=== PATIENT | male | born 1945 | race Caucasian/White ===

== ENCOUNTER 2016-12-24 13:37 | Observation (INO) ==
[2016-12-24] MEDS ORDERED: NITROGLYCERIN SL 0.4 MG TABLET SL PRN (14:05)
[2016-12-24] MEDS ORDERED: NITROGLYCERIN 2% OINT 1 INCH/GM PACK TOP STA (14:05)
[2016-12-24] MEDS ORDERED: ALUM/MAG/SIMETH/LIDO VISC 1:1 30 ML BOTTLE PO STA (14:05)
[2016-12-24] MEDS ORDERED: ASPIRIN 325 MG TABLET PO STA (14:05)
[2016-12-24] MEDS ORDERED: ENOXAPARIN 100 MG/ML SYRINGE SUBCUT STA (14:05)
--- NOTE | 2016-12-24 14:08 | EKG Report ---
Stationary ECG Study [facility] ER Test Date: 12/24/2016 1:49:28 PM Pat Name: GRISEL EARL Department: Room: 274 Gender: M Inside Trucker: Abbie Pérez : 1945 Requested by: Asad Roebrtson Order Number: [id number] Reading MD: FRIDA SPRINGER Intervals [place] Rate: 60 P: 999 AK: 150 QRS: -74 QRSD: 192 T: 87 QT: 535 QTc: 535 Interpretive Statements ELECTRONIC ATRIAL PACEMAKER ELECTRONIC VENTRICULAR PACEMAKER NO FURTHER INTERPRETATION POSSIBLE ATYPICAL ECG Electronically Signed On 12-25-16 17:22:14 SUSTAINABLE AGRICULTURE SPECIALIST by FRIDA SPRINGER [email or web address]
--- NOTE | 2016-12-24 14:19 | Emergency Department Note ---
Enoch Boraj Meredith, am scribing for, and in the presence of, Asad Giraldo MD 14: 17. Kristal Borja James D, MD, personally performed the services described in this documentation, ascribed by Deanne Kendall in my presence, and it is both accurate and complete 419 . Arrival - Arrival Chief Complaint: Chest Pain Stated Complaint: sent by Dr Gomez ED Nursing Triage Note: Pt c/o CP with some SOB x 2 days. Pt was seen by Dr Kelly yesterday he called Dr Gomez and instr. to come into the ER. Mode of Arrival: Ambulatory Limitations: No Limitations Source: Patient, Old Records Reviewed, RN Notes Reviewed Time Seen by Provider: 12/24/16 14:05 - History of Present Illness HPI Narrative: Pt is a 71 y/o white male reporting to the ED with c/o intermittent, sharp chest pain for the past 2 weeks. He confirms some bright red blood in his stool 2 days ago which no resolved but denies any shortness of breath or diaphoresis. Pt saw Dr. Kelly yesterday who called Dr. Gomez. Dr. Gomez called back this morning and instructed the pt to come to the ED. Pt has a history of pacemaker, HTN, and NIDDM. Onset (ago): week(s) Consistency: intermittent Quality: sharp Allergies/Adverse Reactions: Allergies Allergy/AdvReac Type Severity Reaction Status Date / Time No Known Allergies Allergy Verified 12/24/16 13:45 Home Medications: Home Medications Medication Instructions Recorded Confirmed Type Amiodarone HCl 200 mg PO BID 12/24/16 12/24/16 History Amlodipine Besylate 5 mg PO DAILY 12/24/16 12/24/16 History Aspirin EC Tab 81 mg PO DAILY 12/24/16 12/24/16 History Atenolol [Tenormin] 25 mg PO BID 12/24/16 12/24/16 History Hyoscyamine Sulfate 0.125 mg PO Q4H PRN 12/24/16 12/24/16 History Metformin HCl 1,000 mg PO BID W/MEALS 12/24/16 12/24/16 History Omeprazole 20 mg PO DAILY 12/24/16 12/24/16 History Pravastatin [Pravachol] 40 mg PO DAILY 12/24/16 12/24/16 History Valsartan/Hydrochlorothiazide 1 each PO DAILY 12/24/16 12/24/16 History [Valsartan-Hctz 320-25 mg Tab] glipiZIDE [Glipizide] 5 mg PO BIDAC 12/24/16 12/24/16 History Review of System - Review of System 12 point system: reviewed and no additional remarkable complaints except as stated - Review of System Constitutional: Present: as per HPI. Absent: diaphoresis Respiratory: Present: as per HPI. Absent: respiratory distress Cardiovascular: Present: as per HPI, chest pain Gastrointestinal: Present: as per HPI, other (bright red blood in the stool ) Medical,Surgical,& Family Hx - Medical History Cardio: History of: Hypertension, Pacemaker Endocrine: History of: Diabetes Mellitus (NIDDM) - Surgical History Thoracic Surgeries: Surgical HX of;: Nephrectomy - Family History Family History: Denies;: Additional Family History - Social History Smoking Status: Never smoker Exam Physical Examination: GENERAL: This is a well-nourished, well-developed white male in no apparent distress. VITAL SIGNS: Temperature: 98.0, Pulse: 62, Respirations: 18, Blood pressure: 163 /76, O2 saturatino: 96 HEENT: Head is normocephalic and atraumatic. Pupils are equally round and reactive to light. Extraocular movement are intact. Oropharynx is benign with moist mucous membranes. NECK: Neck is soft and supple without tenderness. There are no masses. There is no lymphadenopathy. LUNGS: Lungs are clear to auscultation bilaterally. Chest rises symmetrically. There is no chest wall tenderness. CV: Heart is regular rate and rhythm without murmurs, rubs, or gallops. ABDOMEN: Abdomen is soft, non-tender to palpation. There are no abnormal masses palpated. There is no organomegaly. Bowel sounds are present and active. SKIN: Skin is warm and dry. No rash. EXTREMITIES: Patient has full range of motion without tenderness. There is no pedal edema. NEUROLOGIC: Awake, alert, and oriented x3. Cranial nerves II through XII are grossly intact. There are no decreased motor function in the right. PSYCHIATRIC: Normal mood. Normal affect. Vital Signs: Vital Signs Temperature 98.0 F 12/24/16 13:45 Pulse Rate 62 12/24/16 13:45 Respiratory Rate 18 12/24/16 13:45 Blood Pressure 163/76 12/24/16 13:45 O2 Sat by Pulse Oximetry 96 12/24/16 13:45 Course - Consultations Consultation #1: Discussed with assembler musical instruments. Patient will be admitted to their service. Time: 15:27 Results - Labs CBC & BMP: 12/24/16 14:25 12/24/16 14:25 Lab Results: I have reviewed the patients labs Labs: Laboratory Tests 12/24/16 14:25 WBC 8.6 RBC 4.30 Hgb 14.2 Hct 41.8 L Plt Count 194 Lymph % (Auto) 20.0 L Laboratory Tests 12/24/16 14:25 INR 1.0 PT Patient/Control Mix 10.7 Circ Anticoag PTT 28.0 Laboratory Tests 12/24/16 12/24/16 14:25 14:25 Sodium 146 H Potassium 4.2 Chloride 107 Carbon Dioxide 28 Anion Gap 15.2 H BUN 17 Creatinine 1.20 AST 81 H ALT 83 H Alkaline Phosphatase 131 H Troponin I < 0.015 Globulin 4.1 H Albumin/Globulin Ratio 0.8 L Laboratory Tests 12/24/16 14:25 Troponin I < 0.015 - EKG EKG results: interpreted by ERMD - Impressions Electronic ventricular pacemaker with a rate of 60. No further interpretation possible. - Diagnostic Findings Procedure: Chest x-ray: image reviewed by me (No cardiomegaly, no pleural effusions, no infiltrates. Pacemaker in place on the right with leads in place. ) Disposition Clinical Impression: Chest pain, Hematochezia Case discussed with: patient Disposition: Still a Patient Condition: Stable Time of Disposition: 15:35
--- NOTE | 2016-12-24 14:23 | XRay Report ---
XR chest 1V portable Indication: Chest pain Comparison: Chest x-ray August 13, 2014 Technique: Portable AP chest was performed. Findings: The heart size appears within normal limits of size. Right-sided cardiac pacemaker generator and pacemaker leads are stable. The mediastinal contour and hilar structures demonstrate no significant abnormalities. Lungs are clear. Bones and soft tissues demonstrate no evidence of acute pathology. Impression: 1. No evidence of acute pathology. 12/24/2016 2:19 PM PROCEDURE INTERPRETED AT [facility] DEPARTMENT OF RADIOLOGY Final Report Signed by: Dr. Francisco Whelan
[2016-12-24 14:41] LABS: Basophils # 0.1 10*3/uL (0.0-0.2); Basophils % 0.6 % (0.0-0.8); Eosinophils # 0.6 10*3/uL (0.0-0.87); Eosinophils % 6.4 % (0.00-10.9); Hematocrit 41.8 VOL% (42.0-52.0); Hemoglobin 14.2 GM/DL (14.0-18.0); Immature Granulocytes % 0.3 %; Immature Granulocytes Absolute 0.03 #; Lymphocytes # 1.7 10*3/uL (1.4-4.0); Mean Corpuscular Hemoglobin 33 PG (27-34); Mean Corpuscular Volume 97.2 FL (87-102); Mean Platelet Volume 10.9 FL (9.6-12.0); Monocytes # 0.7 10*3/uL (0.11-0.8); Monocytes % 8.6 % (1.7-12.7); Neutrophils # 5.5 10*3/uL (1.4-7.4); Neutrophils % 64.1 % (38.7-73.9); Platelet Count 194 T/CUMM (130-400); Red Cell Distribution Width 14.4 % (9.3-17.3); White Blood Count 8.6 T/CUMM (4-12)
[2016-12-24] MEDS ORDERED: ALUM/MAG/SIMETH/LIDO VISC 1:1 30 ML BOTTLE PO ONE (14:44)
[2016-12-24] MEDS ORDERED: NITROGLYCERIN 2% OINT 1 INCH/GM PACK TOP ONE (14:44)
[2016-12-24] MEDS ORDERED: ASPIRIN 325 MG TABLET ONE (14:44)
[2016-12-24] MEDS ORDERED: ENOXAPARIN 80 MG/0.8 ML SYRINGE SUBCUT ONE (14:44)
[2016-12-24 14:51] LABS: PT Patient Result 10.7 SECS
[2016-12-24] MEDS ORDERED: PANTOPRAZOLE 40 MG VIAL IV STA (15:10)
[2016-12-24] MEDS ORDERED: PANTOPRAZOLE 40 MG VIAL IV ONE (15:17)
[2016-12-24 15:19] LABS: Albumin 3.6 G/DL (3.4-5.0); Bilirubin,Total 0.5 MG/DL (0.2-1.0); Calcium 8.9 MG/DL (8.5-10.1); Osmolality,Calculated 290.6 MOS/KG (273-304); Potassium 4.2 MMOL/L (3.5-5.1); Total Protein 7.7 G/DL (6.4-8.3)
[2016-12-24] MEDS ORDERED: DEXTROSE 50% 25 GM/50 ML VIAL IV ONE ×2 (17:06→17:15)
[2016-12-24] MEDS ORDERED: MAGNESIUM SULF RIDER 2 GM in PREMIX 1 EACH IV PRN (17:55)
[2016-12-24] MEDS ORDERED: MAGNESIUM SULF RIDER 4 GM in PREMIX 1 EACH IV PRN (17:55)
[2016-12-24] MEDS: SODIUM CHLORIDE 0.9% 1,000 ML IV SCH (19:34)
[2016-12-25] MEDS: SODIUM CHLORIDE 0.9% 1,000 ML IV SCH ×3 (03:35→18:35)
--- NOTE | 2016-12-25 13:47 | Cardiology History & Physical ---
Assessment and Plan (1) Hematochezia Status: Acute Assessment and plan: I'm going to consult gastroenterology for further evaluation. Current Visit: Yes (2) Pacemaker Status: Acute Current Visit: Yes (3) Hypertension Status: Acute Current Visit: Yes (4) Diabetes Status: Acute Current Visit: Yes (5) Paroxysmal atrial fibrillation Status: Acute Current Visit: Yes History of Present Illness History of present illness: Mr. Leung is a 71 year old male who is normally followed by Dr. Gomez. He has a history of paroxysmal atrial fibrillation, hypertension, diabetes, and a pacemaker. The patient reports that he noticed bright red blood in his stool for a couple of days. He contacted his primary physician who contacted Dr. Gomez, negative both recommended that he come into the hospital for further evaluation and management. Patient reports that it is a small to moderate amount of blood in his stool. It is bright red. There is no specific exacerbating or relieving factors. He had more this last night as well. He denies any previous history of gastrointestinal problems or bleeding. There were reports of some intermittent chest pain, but he did not give that history to me. He does complain of some abdominal discomfort at times, although his abdominal exam was benign. He denies any fever, chills, or cough. He has no orthopnea, PND, or peripheral edema. He has not had any palpitations or syncope. At the time of seeing him he was essentially feeling normal. He is only on aspirin for anticoagulation at this time. Home Medications Medication Instructions Recorded Confirmed Type Amiodarone HCl 200 mg PO BID 12/24/16 12/24/16 History Amlodipine Besylate 5 mg PO DAILY 12/24/16 12/24/16 History Aspirin EC Tab 81 mg PO DAILY 12/24/16 12/24/16 History Atenolol [Tenormin] 25 mg PO BID 12/24/16 12/24/16 History Hyoscyamine Sulfate 0.125 mg PO Q4H PRN 12/24/16 12/24/16 History Metformin HCl 1,000 mg PO BID W/MEALS 12/24/16 12/24/16 History Omeprazole 20 mg PO DAILY 12/24/16 12/24/16 History Pravastatin [Pravachol] 40 mg PO DAILY 12/24/16 12/24/16 History Valsartan/Hydrochlorothiazide 1 each PO DAILY 12/24/16 12/24/16 History [Valsartan-Hctz 320-25 mg Tab] glipiZIDE [Glipizide] 5 mg PO BIDAC 12/24/16 12/24/16 History Allergies Allergy/AdvReac Type Severity Reaction Status Date / Time No Known Allergies Allergy Verified 12/24/16 13:45 12 point system: reviewed and no additional remarkable complaints except as stated Medical,Surgical,& Family Hx - Medical History Cardio: History of: Cardiac Dysrhythmia, Hypertension, Pacemaker HEENT: History of: Ear Problem (Bilaterally ear aid) Endocrine: History of: Diabetes Mellitus (NIDDM), Dyslipidemia Gastrointestinal: History of: GERD - Surgical History Thoracic Surgeries: Surgical HX of;: Kidney (Renal Surgery) (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), Nephrectomy Abdominal Surgeries: Patient denies: Appendectomy - Family History Family History: Reports;: Family Cancer (Mother(kidney)) Denies;: Additional Family History - Social History Smoking Status: Never smoker Frequency of Alcohol Use: None Type of Drug Use: None Cardiology Physical Exam - Constitutional Vitals: Vital Signs Temp Pulse Resp BP Pulse Ox 98.1 F 60 18 141/70 90 L 12/25/16 12:00 12/25/16 12:00 12/25/16 12:00 12/25/16 12:00 12/25/16 12:00 Intake and Output 12/24/16 12/25/16 12/25/16 23:59 07:59 15:59 Intake Total 300 / 300 1480 / 1480 1000 / 1000 Output Total 220 / 220 1710 / 1710 Balance 80 / 80 -230 / -230 1000 / 1000 Intake: IV 1000 / 1000 1000 / 1000 Ns 1,000 ml @ 125 mls/hr 1000 / 1000 1000 / 1000 IV .Q8H ABISAI Rx#: [id number] Oral 300 / 300 480 / 480 Output: Urine 220 / 220 1710 / 1710 Other: Voiding Method Urinal Indwelling Catheter # Bowel Movements 1 Weight 54.544 kg 65.825 kg Patient Weight 12/25/16 23:59 Weight 65.825 kg Exam: General: Appears well developed, well nourished, no apparent distress HEENT: Normocephalic, atraumatic Neck: Supple Neck, Midline Trachea, No Bruit, No JVD Cardiac: Reg Rate and Rhythm, No Murmur, no gallop, no rub Lungs: Clear to auscultation, No Wheeze, Rales, Rhonchi Neuro: Cranial Nerve 2-12 Intact, Motor Function Grossly Intact Abdomen: Soft, Active Bowel Sounds, No Masses, No Pulsations/Bruits Skin: Normal color, no rash Extremities: No Clubbing, No Cyanosis, No Edema, Normal Upper Extr. Pulses Musculoskeletal: No acute abnormality noted Psychiatric: The patient does not appear to be anxious or depressed Result/EKG - Labs CBC & BMP: 12/24/16 14:25 12/24/16 14:25 Lab Results: I have reviewed the past 24 hour labs Labs: Laboratory Results - last 24 hr 12/24/16 12/24/16 12/24/16 17:03 18:30 20:08 POC Glucose 51 L 217 H Troponin I < 0.015 12/24/16 12/25/16 12/25/16 20:38 07:37 11:27 POC Glucose 117 H 177 H Troponin I < 0.015 - EKG EKG results: interpreted by me
[2016-12-25] MEDS ORDERED: HYOSCYAMINE 0.125 MG TABLET PO PRN (13:48)
[2016-12-25 14:35] LABS: Hematocrit 37.7 VOL% (42.0-52.0); Hemoglobin 12.7 GM/DL (14.0-18.0)
--- NOTE | 2016-12-25 15:25 | Gastrointestinal Consult Note ---
Assessment and Plan (1) Hematochezia Status: Acute Assessment and plan: The patient has a previous colonoscopy done 2 and a half years ago but not done for bleeding-- this demonstrated some diverticulosis and certainly this could be a diverticular bleed versus hemorrhoidal bleed versus ischemic colitis or even an infectious colitis. Patient denies any sick contacts or unusual foods. He is having abdominal pain and we will go ahead and check his stools for stool pathogens. We will likely start by putting him on clear liquids tomorrow , stopping his aspirin and getting him bowel prepped for the next day 12/27/16 for colonoscopy. Risks and benefits of the procedure were discussed with the patient and include but are not limited to: Bleeding, infection, perforation, cardiac and pulmonary compromise. If this is nonischemic bleed or diverticular bleed or hemorrhoidal bleed most likely. Current Visit: Yes (2) Posthemorrhagic anemia Status: Acute Assessment and plan: We will continue to watch his hematocrit was suspect he is not going to lose much blood. He is drifted down from 41% down to 37% we will continue to monitor. Current Visit: Yes (3) Gastritis Status: Acute Assessment and plan: Patient does have a history of nodular gastritis, the stools do not seem dark although brisk upper GI bleed could certainly present with bright red blood per rectum his hematocrit does not seem to support this. We will continue to observe. I do suggest we start her on some Protonix prior to supper. Current Visit: Yes (4) Diverticulosis Status: Acute Assessment and plan: Incidental finding-- no specific treatment needed. Current Visit: Yes History of Present Illness Chief complaint: bright red blood per rectum, minimal drop in hematocrit and gen. ab. pain History of present illness: Mr. Leung is a 71 year old male who has a history of onset of rectal bleeding the last 24 hours with multiple stools that have been bright red, [place] got a history of this is been going on for the last several days, his hematocrit was actually normal on admission at 41.8. The patient initially presented with Dr. Kelly who called Dr. Gomez and was instructed to bring him to a [facility] for evaluation. He is having diffuse abdominal pain, this seems to be worse in the left upper quadrant, the patient's hematocrit over the evening time has dropped down to 37.7, is demonstrated bright red blood per rectum to the nursing staff but only in the form of a scant amount of bright red on the toilet paper. This patient previously been evaluated by Dr. Pepe as recently as 08/14/14 for abdominal pain. He had an upper endoscopy done that date which demonstrated a focal nodular gastritis erosion, he had a subsequent colonoscopy on 08/15/14 which demonstrated left-sided diverticulosis but no hemorrhoids or other lesions certainly no polyps or AVMs or cancer. The patient has felt slightly weak not dizzy. 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 He does not have any nausea or vomiting the pain waxes and wanes and is crampy and only minimal 5 out of 10 in intensity. The patient has atrial fibrillation and a pacemaker that is only on aspirin as his single anticoagulant. Home Medications Medication Instructions Recorded Confirmed Type Amiodarone HCl 200 mg PO BID 12/24/16 12/24/16 History Amlodipine Besylate 5 mg PO DAILY 12/24/16 12/24/16 History Aspirin EC Tab 81 mg PO DAILY 12/24/16 12/24/16 History Atenolol [Tenormin] 25 mg PO BID 12/24/16 12/24/16 History Hyoscyamine Sulfate 0.125 mg PO Q4H PRN 12/24/16 12/24/16 History Metformin HCl 1,000 mg PO BID W/MEALS 12/24/16 12/24/16 History Omeprazole 20 mg PO DAILY 12/24/16 12/24/16 History Pravastatin [Pravachol] 40 mg PO DAILY 12/24/16 12/24/16 History Valsartan/Hydrochlorothiazide 1 each PO DAILY 12/24/16 12/24/16 History [Valsartan-Hctz 320-25 mg Tab] glipiZIDE [Glipizide] 5 mg PO BIDAC 12/24/16 12/24/16 History Allergies Allergy/AdvReac Type Severity Reaction Status Date / Time No Known Allergies Allergy Verified 12/24/16 13:45 Medical,Surgical,& Family Hx - Medical History Cardio: History of: Cardiac Dysrhythmia, Hypertension, Pacemaker HEENT: History of: Ear Problem (Bilaterally ear aid) Endocrine: History of: Diabetes Mellitus (NIDDM), Dyslipidemia Gastrointestinal: History of: GERD - Surgical History Thoracic Surgeries: Surgical HX of;: Kidney (Renal Surgery) (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), Nephrectomy Abdominal Surgeries: Patient denies: Appendectomy - Family History Family History: Reports;: Family Cancer (Mother(kidney)) Denies;: Additional Family History - Social History Smoking Status: Never smoker Frequency of Alcohol Use: None Type of Drug Use: None Review of systems: Constitutional: Denies fever, chills, nausea, and vomiting Eyes: Denies dry eyes, and scleral icterus HENT: Denies headaches Cardiovascular: Denies acute chest pain and claudication Respiratory: Denies shortness of breath, wheezing, and difficulty breathing, denies cough Gastrointestinal: As noted in the HPI Genitourinary: Denies dysuria and hematuria Neurologic: Denies vision loss, and loss of sensation Musculoskeletal: He does complain of some mild joint swelling, joint stiffness, and muscular weakness Psychiatric: Denies depression and shane symptoms Heme-Lymph: Denies easy bruising, lymph node enlargement or tenderness, night sweats, excessive bleeding Allergies-immunologic: Denies pruritus and rhinorrhea Exam - Constitutional Vitals: Period Temp Pulse Resp BP Sys/Leavitt Pulse Ox Last 24 Hr 95.2 F-99 F 60-62 14-22 133-163/67-78 90-97 General appearance: no acute distress Exam: Constitutional: Well-developed, well-nourished, alert, and in very mild distress due to abdominal tenderness. Head and face: Head: Normocephalic atraumatic Eyes: Conjunctiva without injection, no gross scleral icterus, pupils equal and round bilaterally Ears: Intact to conversation in both ears Nose: External appearance is normal, nares patent Mouth: Oral mucous membranes moist without erythema dentition noted to be without erosion Neck: Normal appearance, no masses or tenderness, trachea midline Thyroid: Gland midline and appropriate size for age Respiratory: Normal respiratory effort, clear to auscultation without wheezes, rhonchi or rales Cardiovascular: Regular rate and rhythm, normal S1, S2, the exam is without rubs, murmurs or gallops. Gastrointestinal: Mildly tender to palpation in left upper and lateral abdomen greater than left lower abdomen greater than right upper abdomen. There is no tenderness in the right lower abdomen., normal active bowel sounds, tone normal without rigidity or guarding, no masses present, no hepatomegaly, no spleen tip felt. Rectal exam significant for traces of bright red blood per rectum Lymphatic: Neck without adenopathy, axilla without lymphadenopathy present Musculoskeletal: Right and left lower extremities without evidence of edema Skin and subcutaneous tissue: No rashes or ulcerations noted, normal skin turgor, digits and nails without clubbing/cyanosis/deformities. Neurologic: The patient is grossly oriented to person place and time, cranial nerves show tongue movements are normal with normal tongue extrusion midline, light touch sensation is intact. It appears to be some atrophy of patient's hand muscles bilaterally Psychiatric: No hallucinations or delusions are present, does not appear depressed Results - Labs CBC & BMP: 12/25/16 14:15 12/24/16 14:25
[2016-12-25] MEDS: glipiZIDE 5 MG TABLET PO SCH (17:03)
[2016-12-25] MEDS: metFORMIN 500 MG TABLET PO SCH (17:03)
[2016-12-25] MEDS: ATENOLOL 25 MG TABLET PO SCH (20:34)
[2016-12-25] MEDS: AMIODARONE 200 MG TABLET PO SCH (20:34)
[2016-12-26] MEDS: SODIUM CHLORIDE 0.9% 1,000 ML IV SCH ×4 (02:29→22:43)
[2016-12-26 03:15] LABS: Basophils % 0.5 % (0.0-0.8); Eosinophils # 0.4 10*3/uL (0.0-0.87); Eosinophils % 5.5 % (0.00-10.9); Hematocrit 37.1 VOL% (42.0-52.0); Hemoglobin 12.7 GM/DL (14.0-18.0); Immature Granulocytes % 0.4 %; Immature Granulocytes Absolute 0.03 #; Lymphocytes # 1.2 10*3/uL (1.4-4.0); Lymphocytes % 16.2 % (21.2-54.2); Mean Corpuscular HGB Conc 34.2 GM/DL (32-36); Mean Corpuscular Hemoglobin 33 PG (27-34); Mean Corpuscular Volume 96.4 FL (87-102); Monocytes # 0.7 10*3/uL (0.11-0.8); Neutrophils # 5.1 10*3/uL (1.4-7.4); Neutrophils % 68.4 % (38.7-73.9); Platelet Count 163 T/CUMM (130-400); Red Blood Count 3.85 MC/CUMM (3.8-5.5); Red Cell Distribution Width 14.3 % (9.3-17.3); White Blood Count 7.5 T/CUMM (4-12)
[2016-12-26] MEDS ORDERED: MAGNESIUM CITRATE 300 ML BOTTLE PO ONE ×2 (07:00→23:06)
[2016-12-26] MEDS: metFORMIN 500 MG TABLET PO SCH ×3 (08:39→16:02)
[2016-12-26] MEDS: glipiZIDE 5 MG TABLET PO SCH ×2 (08:54→16:02)
[2016-12-26] MEDS: PRAVASTATIN 40 MG TABLET PO SCH (08:54)
[2016-12-26] MEDS: amLODIPine 5 MG TABLET PO SCH (08:54)
[2016-12-26] MEDS: ATENOLOL 25 MG TABLET PO SCH ×2 (08:54→21:25)
[2016-12-26] MEDS: AMIODARONE 200 MG TABLET PO SCH ×2 (08:54→21:25)
[2016-12-26] MEDS: VALSARTAN/HCTZ 160-12.5 MG TABLET PO SCH (08:55)
[2016-12-26] MEDS: PANTOPRAZOLE 40 MG TABLET PO SCH (08:55)
[2016-12-26] MEDS ORDERED: ASPIRIN EC 81 MG TABLET PO SCH (09:00)
[2016-12-26] MEDS ORDERED: PANTOPRAZOLE 40 MG TABLET PO SCH (09:00)
--- NOTE | 2016-12-26 11:56 | Cardiology Progress Note ---
Assessment and Plan (1) Hematochezia Status: Acute Assessment and plan: GI eval underway Current Visit: Yes (2) Pacemaker Status: Acute Current Visit: Yes (3) Hypertension Status: Acute Current Visit: Yes (4) Diabetes Status: Acute Current Visit: Yes (5) Paroxysmal atrial fibrillation Status: Acute Current Visit: Yes Cardiology - PN: Subj Interval history: The patient still have some abdominal distention/discomfort. He denies additional blood loss in his stool overnight. He denies any cardiac symptoms today such as angina, palpitations, or dyspnea. He is scheduled for endoscopy tomorrow. Current Medications Amiodarone HCl (Cordarone Tab) 200 mg PO BID [facility] Last Admin: 12/26/16 08:54 Dose: 200 mg Amlodipine Besylate (Norvasc) 5 mg PO DAILY [facility] Last Admin: 12/26/16 08:54 Dose: 5 mg Aspirin () 81 mg PO DAILY [facility] Last Admin: 12/26/16 08:55 Dose: 81 mg Atenolol (Tenormin) 25 mg PO BID [facility] Last Admin: 12/26/16 08:54 Dose: 25 mg Glipizide (Glucotrol) 5 mg PO BIDAC [facility] Last Admin: 12/26/16 08:54 Dose: 5 mg HCTZ/Valsartan (Diovan Hct 160-12.5) 2 tablet PO DAILY [facility] Last Admin: 12/26/16 08:55 Dose: 2 tablet Hyoscyamine (Levsin Tab) 0.125 mg PO Q4H PRN PRN Reason: Dry Mouth Magnesium Sulfate 2 gm/ Premix 50 mls @ 25 mls/hr IV .PER PROTOCOL PRN; Protocol PRN Reason: Per Protocol Magnesium Sulfate 4 gm/ Premix 100 mls @ 25 mls/hr IV .PER PROTOCOL PRN; Protocol PRN Reason: Per Protocol Sodium Chloride (Ns) 1,000 mls @ 125 mls/hr IV .Q8H [facility] Last Admin: 12/26/16 11:15 Dose: 125 mls/hr Metformin HCl (Glucophage) 1,000 mg PO BID W/MEALS [facility] Last Admin: 12/26/16 08:53 Dose: 1,000 mg Nitroglycerin (Nitrostat) 0.4 mg SL Q5M PRN PRN Reason: Chest Pain Pantoprazole Sodium (Protonix Tab) 40 mg PO DAILY [facility] Last Admin: 12/26/16 08:55 Dose: 40 mg Pravastatin Sodium (Pravachol) 40 mg PO DAILY ABISAI Last Admin: 12/26/16 08:54 Dose: 40 mg Exam (Progress Note) - Constitutional Vitals: Period Temp Pulse Resp BP Sys/Leavitt Pulse Ox Last 24 Hr 96.6 F-98.5 F 59-60 16-18 141-160/63-77 90-96 Exam: General: Appears well developed, well nourished, no apparent distress HEENT: Normocephalic, atraumatic Neck: Supple Neck, Midline Trachea, No Bruit, No JVD Cardiac: Reg Rate and Rhythm, 2/6 Murmur, no gallop, no rub Lungs: Clear to auscultation, No Wheeze, Rales, Rhonchi Neuro: Cranial Nerve 2-12 Intact, Motor Function Grossly Intact Abdomen: Soft, Active Bowel Sounds, No Masses, No Pulsations/Bruits Skin: Normal color, no rash Extremities: No Clubbing, No Cyanosis, No Edema, Normal Upper Extr. Pulses Musculoskeletal: No acute abnormality noted Psychiatric: The patient does not appear to be anxious or depressed Result/EKG - Labs CBC & BMP: 12/26/16 01:49 12/24/16 14:25 Lab Results: I have reviewed the past 24 hour labs Labs: Laboratory Results - last 24 hr 12/25/16 12/25/16 12/26/16 14:15 20:33 01:49 WBC 7.5 RBC 3.85 Hgb 12.7 L 12.7 L Hct 37.7 L 37.1 L MCV 96.4 MCH 33 MCHC 34.2 RDW 14.3 Plt Count 163 MPV 12.0 Neut % (Auto) 68.4 Lymph % (Auto) 16.2 L [place] % (Auto) 9.0 Eos % (Auto) 5.5 Baso % (Auto) 0.5 Neut # (Auto) 5.1 Lymph # (Auto) 1.2 L [place] # (Auto) 0.7 Eos # (Auto) 0.4 Baso # (Auto) 0.0 Immature Gran % 0.4 Nucleated RBC % 0.0 Immature Gran # 0.03 Nucleated RBCs # 0.00 POC Glucose 161 H 12/26/16 12/26/16 07:33 08:53 WBC RBC Hgb Hct MCV MCH MCHC RDW Plt Count MPV Neut % (Auto) Lymph % (Auto) [place] % (Auto) Eos % (Auto) Baso % (Auto) Neut # (Auto) Lymph # (Auto) [place] # (Auto) Eos # (Auto) Baso # (Auto) Immature Gran % Nucleated RBC % Immature Gran # Nucleated RBCs # POC Glucose 77 176 H - EKG EKG results: interpreted by me
--- NOTE | 2016-12-26 15:12 | Gastrointestinal Progress Note ---
Assessment and Plan (1) Hematochezia Status: Acute Assessment and plan: The patient has a previous colonoscopy done 2 and a half years ago but not done for bleeding-- this demonstrated some diverticulosis and certainly this could be a diverticular bleed versus hemorrhoidal bleed versus ischemic colitis or even an infectious colitis. Patient denies any sick contacts or unusual foods. He is having abdominal pain and we will go ahead and check his stools for stool pathogens. We will likely start by putting him on clear liquids tomorrow , stopping his aspirin and getting him bowel prepped for the next day 12/27/16 for colonoscopy. Risks and benefits of the procedure were discussed with the patient and include but are not limited to: Bleeding, infection, perforation, cardiac and pulmonary compromise. If this is nonischemic bleed or diverticular bleed or hemorrhoidal bleed most likely. 12/26/16--the patient is doing adequately at this time, no new complaints, he is still having a small amount of bright red blood coming out of his rectum but I suspect this will pass with his bowel prep tonight. He is on the schedule for a colonoscopy tomorrow, he would like his brother to be there if possible to hear the results. Current Visit: Yes (2) Posthemorrhagic anemia Status: Acute Assessment and plan: We will continue to watch his hematocrit was suspect he is not going to lose much blood. He is drifted down from 41% down to 37% we will continue to monitor. 12/26/16--patient is demonstrating any significant further blood loss. The hematocrit is 37% still. Current Visit: Yes (3) Gastritis Status: Acute Assessment and plan: Patient does have a history of nodular gastritis, the stools do not seem dark although brisk upper GI bleed could certainly present with bright red blood per rectum his hematocrit does not seem to support this. We will continue to observe. I do suggest we start her on some Protonix prior to supper. 12/26/16--No further problems, the patient does feel some mild reflux times but this is not active now. Current Visit: Yes (4) Diverticulosis Status: Acute Assessment and plan: Incidental finding-- no specific treatment needed. Current Visit: Yes Gastroenterology - PN: Subj Interval history: Patient does feel some bloating going on, he has responded already to magnesium citrate given earlier this morning and he is due to get the rest his bowel prep this afternoon. We should be proceeding with colonoscopy tomorrow somewhere between 7 o'clock and 9 o'clock in the morning. He has been taking his clear liquids all day. Exam (Progress Note) - Constitutional Vitals: Period Temp Pulse Resp BP Sys/Leavitt Pulse Ox Last 24 Hr 96.6 F-98.5 F 59-60 16-18 141-160/63-78 93-96 General appearance: no acute distress - Head Head exam: Present: normocephalic - Eye Eye exam: Present: EOMI - Respiratory Respiratory exam: Present: clear to auscultation bilaterally - Cardiovascular Cardiovascular exam: Present: regular rate and rhythm - GI/Abdominal GI/Abdominal exam: Present: normal bowel sounds, tenderness (mild to the periumbilical region.), soft. Absent: rebound - Extremities Exam Extremities exam: Present: normal inspection - Neurological Exam Neurological exam: Present: alert, oriented X3 - Psychiatric Psychiatric exam: Present: normal affect, normal mood - Skin Skin exam: Present: warm Results - Labs CBC & BMP: 12/26/16 01:49 12/24/16 14:25
[2016-12-26 15:56] LABS: Hematocrit 39.1 VOL% (42.0-52.0); Hemoglobin 13.2 GM/DL (14.0-18.0)
[2016-12-26] MEDS ORDERED: POLYETHYLENE GLYCOL POWDER 255 GM BOTTLE PO ONE (16:00)
[2016-12-26] MEDS: BISACODYL 5 MG TABLET PO SCH ×2 (16:02→22:44)
[2016-12-27 05:29] LABS: Hematocrit 39.5 VOL% (42.0-52.0); Hemoglobin 13.2 GM/DL (14.0-18.0)
[2016-12-27] MEDS ORDERED: LIDOCAINE 2% 5 ML VIAL ONE (08:50)
[2016-12-27] MEDS ORDERED: PROPOFOL 200 MG/20 ML VIAL IV ONE (08:50)
--- NOTE | 2016-12-27 09:05 | Operative Note ---
Date of procedure: 12/27/16 Pre-op diagnosis: hematochezia with minimal change in hematocrit Post-op diagnosis: other (Patient does not have any evidence of ischemia, nor diverticuli that would explain his bleeding, it is presumed that he had hemorrhoidal bleeding. Terminal ileum was intubated and he does not appear to have Crohn's, the patient does have a perirectal fungal-appearing infection.) Procedure: PROCEDURE: Colonoscopy REFERRING PHYSICIAN: Shalom Sams M.D. INDICATIONS: Hematochezia with minimal change in the patient's hematocrit down from a hematocrit of 41% to 37%, now back up to 39%, bleeding cleared with further bowel movements. The prior H&P was reviewed and interrim changes are as noted: No change from previous GI consultation 3 days ago ENDOSCOPIST: Genaro Dickens MD ENDOSCOPE: [employer] Video 100 System colonoscope COLON PREPARATION: 238 gm of PEG containing laxative and 1.9 liters of gatoraid/sports drink and dulcolax 15 mg q8 hours x 3 ASA CLASS: 3 EXAM: CV: regular rate and rhythm Respiratory: Clear without wheezes Abdominal: active bowel sounds Rectal: Good tone, no fissures or fistulas MEDICATION: Per nursing anesthesia protocol, see their notes PROCEDURE: After discussion of the potential risks and benefits of colonoscopy, the informed consent was obtained, from patient or health care surrogate. The patient was then placed in the left lateral decubitus position where sedation was achieved as noted above. Rectal examination was followed by insertion of the colonoscope. The colonoscope was passed under direct visualization to the cecum. Advancement was facilitated by insertion/withdrawl techniques, abdominal pressure and patient positioning. Once the cecal pole was reached, slow withdrawal was performed with the findings as noted below. The patient tolerated the procedure well and without complication. QUALITY OF PREP: Excellent WITHDRAWL TIME: 4 minutes and 58 seconds BIOPSIES: Not obtained PHOTOGRAPHS: Obtained FINDINGS: The musoca appeared normal in the following regions: rectum, sigmoid colon, descending colon, splenic flexure, transverse colon, hepatic flexure, ascending colon and cecum. Position within the cecum was confirmed by ileocecal valve, appendiceal oriface, and the convergence of folds (crows foot) . No colitis, polyp, mass or AVM was noted throughout the colon. No diverticulosis noted. Moderate size internal hemorrhoids noted on retroflex, the patient also has a perirectal fungal-appearing infection for about 3 cm around the anus. Intubation of the TI was achieved x 5 cm with normal appearence IMPRESSION: Patient does not have any evidence of ischemia, nor diverticuli that would explain his bleeding, it is presumed that he had hemorrhoidal bleeding. Terminal ileum was intubated and he does not appear to have Crohn's, the patient does have a perirectal fungal-appearing infection. RECOMMENDATIONS: High fiber diet Repeat colonosocopy will be in 10 years given the appearance of today's colonoscopy. The patient's hematocrit is stable and he can certainly be discharged today. A prescription for clotrimazole 1% was given to the patient for use perirectally twice daily topically. Citrucel 1 tablespoon in 12 oz juice BID: 1 bottle: :11 Cardiac diet as tolerated Any anticoagulation stopped can certainly be restarted now. Follow up by phone for biopsy results in 1-2 weeks by phone Genaro Dickens MD COPY TO: Shalom Sams M.D. Anesthesia: MAC Surgeon / Physician: Genaro Dickens Estimated blood loss: minimal Specimens: other (cecum/ascending/descending/sigmoid) Condition: stable Disposition: post procedure unit ([facility]) Results - Labs CBC & BMP: 12/27/16 04:41 12/24/16 14:25 Discharge Plan - Discharge Medications No Action Metformin HCl 1,000 mg PO BID W/MEALS glipiZIDE [Glipizide] 5 mg PO BIDAC Atenolol [Tenormin] 25 mg PO BID Amlodipine Besylate 5 mg PO DAILY Hyoscyamine Sulfate 0.125 mg PO Q4H PRN PRN Reason: Dry Mouth Valsartan/Hydrochlorothiazide [Valsartan-Hctz 320-25 mg Tab] 1 each PO DAILY Aspirin EC Tab 81 mg PO DAILY Amiodarone HCl 200 mg PO BID Pravastatin [Pravachol] 40 mg PO DAILY Omeprazole 20 mg PO DAILY - Follow Up or Referral - Forms/Instructions
--- NOTE | 2016-12-27 09:09 | Gastrointestinal Progress Note ---
Assessment and Plan (1) Hematochezia Status: Acute Assessment and plan: The patient has a previous colonoscopy done 2 and a half years ago but not done for bleeding-- this demonstrated some diverticulosis and certainly this could be a diverticular bleed versus hemorrhoidal bleed versus ischemic colitis or even an infectious colitis. Patient denies any sick contacts or unusual foods. He is having abdominal pain and we will go ahead and check his stools for stool pathogens. We will likely start by putting him on clear liquids tomorrow , stopping his aspirin and getting him bowel prepped for the next day 12/27/16 for colonoscopy. Risks and benefits of the procedure were discussed with the patient and include but are not limited to: Bleeding, infection, perforation, cardiac and pulmonary compromise. If this is nonischemic bleed or diverticular bleed or hemorrhoidal bleed most likely. 12/26/16--the patient is doing adequately at this time, no new complaints, he is still having a small amount of bright red blood coming out of his rectum but I suspect this will pass with his bowel prep tonight. He is on the schedule for a colonoscopy tomorrow, he would like his brother to be there if possible to hear the results. 12/27/16--the colonoscopy demonstrates the following: Patient does not have any evidence of ischemia, nor diverticuli that would explain his bleeding, it is presumed that he had hemorrhoidal bleeding. Terminal ileum was intubated and he does not appear to have Crohn's, the patient does have a perirectal fungal- appearing infection. We'll start some clotrimazole for this, prescription was left in the front of the chart. For my standpoint he can be discharged from the hospital back on his anticoagulation medication as you see fit Current Visit: Yes (2) Posthemorrhagic anemia Status: Acute Assessment and plan: We will continue to watch his hematocrit was suspect he is not going to lose much blood. He is drifted down from 41% down to 37% we will continue to monitor. 12/26/16--patient is demonstrating any significant further blood loss. The hematocrit is 37% still. 12/27/16--patient's hematocrit is popped back up to 39%, this was not a significant GI bleed. Current Visit: Yes (3) Gastritis Status: Acute Assessment and plan: Patient does have a history of nodular gastritis, the stools do not seem dark although brisk upper GI bleed could certainly present with bright red blood per rectum his hematocrit does not seem to support this. We will continue to observe. I do suggest we start her on some Protonix prior to supper. 12/26/16--No further problems, the patient does feel some mild reflux times but this is not active now. 12/27/16--hematocrit up to 39%, patient is not feeling any dysphagia/reflux symptoms. He can continue on Protonix as an outpatient versus resumption of whatever PPI he was on to suppress his symptoms before. Current Visit: Yes (4) Diverticulosis Status: Acute Assessment and plan: Incidental finding-- no specific treatment needed. Negative colonoscopy on 12/27 does not see any diverticulosis. Bleeding was attributed to hemorrhoids alone, He does not need a repeat colonoscopy for 10 years. Current Visit: Yes Gastroenterology - PN: Subj Interval history: The patient is doing well, no further bleeding last night with his prep, he is hungry. He would like a steak lunch. Exam (Progress Note) - Constitutional Vitals: Period Temp Pulse Resp BP Sys/Leavitt Pulse Ox Last 24 Hr 96.8 F-98.1 F 60-65 16-21 149-171/72-87 93-97 - Head Head exam: Present: normocephalic - Eye Eye exam: Present: EOMI Pupils: Present: ESME - Respiratory Respiratory exam: Present: clear to auscultation bilaterally. Absent: rhonchi, stridor, wheezes - Cardiovascular Cardiovascular exam: Present: regular rate and rhythm - GI/Abdominal GI/Abdominal exam: Present: normal bowel sounds, soft. Absent: distended, tenderness, rebound - Extremities Exam Extremities exam: Absent: edema - Neurological Exam Neurological exam: Present: alert, oriented X3, CN II-XII intact - Psychiatric Psychiatric exam: Present: normal affect, normal mood - Skin Skin exam: Present: warm Results - Labs CBC & BMP: 12/27/16 04:41 12/24/16 14:25
--- NOTE | 2016-12-27 09:14 | Anesthesia ---
Anesthesia Post OP - Post Ansesthetic Evaluation Patient seen in post op: Yes Resp: within normal limits CV: within normal limits Mental: within normal limits Temp: within normal limits [place]: within normal limits Nausea and Vomiting: within normal limits Pain: within normal limits
[2016-12-27] MEDS: glipiZIDE 5 MG TABLET PO SCH (09:16)
[2016-12-27] MEDS: BISACODYL 5 MG TABLET PO SCH (09:16)
[2016-12-27] MEDS: metFORMIN 500 MG TABLET PO SCH (09:17)
[2016-12-27] MEDS: SODIUM CHLORIDE 0.9% 1,000 ML IV SCH ×2 (10:00)
[2016-12-27] MEDS: PANTOPRAZOLE 40 MG TABLET PO SCH (10:01)
[2016-12-27] MEDS: ATENOLOL 25 MG TABLET PO SCH (10:01)
[2016-12-27] MEDS: VALSARTAN/HCTZ 160-12.5 MG TABLET PO SCH (10:01)
[2016-12-27] MEDS: amLODIPine 5 MG TABLET PO SCH (10:01)
[2016-12-27] MEDS: PRAVASTATIN 40 MG TABLET PO SCH (10:02)
[2016-12-27] MEDS: AMIODARONE 200 MG TABLET PO SCH (10:02)
[2016-12-27 12:32] VITALS: BP 152/72
--- NOTE | 2016-12-27 14:27 | Discharge Summary ---
Hospital Course - Hospital Course Hospital Course: Mr. Leung is a 71 year old male who is routinely followed by Dr. Gomez. He has a history of paroxysmal atrial fibrillation, hypertension, diabetes, and a pacemaker. Mr. Leung was admitted 12/25/2016 for bright red bleeding from the rectum. Hemoglobin and hematocrit on admission noted to be 14.2 and 41.8 respectively. His aspirin was held while he was hospitalized. This morning, patient underwent elective colonoscopy performed by Dr. Dickens. Identified was no evidence of ischemia, no diverticuli that explain his bleeding. It is presumed that he had hemorrhoidal bleeding. He was also found to have a perirectal fungal infection for which Clotrimazole 1% was prescribed BID. Gas Dr. Dickens agreed to it was safe to restart his aspirin. Having felt he met maximal medical therapy, patient is being discharged home in stable condition. He will resume all of his preadmission medications. He is new medication will be Clotrimazole 1% to machelle-rectal area BID. Patient has a follow-up appointment with Dr. Rush in approximately 2 weeks. He will keep this appointment. - Time spent with patient Time with patient DS: Less than 30 minutes Diagnosis - Discharge Diagnosis (1) Pacemaker Status: Chronic (2) Hypertension Status: Chronic (3) Diabetes Status: Chronic (4) Paroxysmal atrial fibrillation Status: Chronic (5) Rectal bleeding Status: Resolved Discharge Plan - Discharge Data Disposition: Disch To Home/Self Care Condition at Discharge: Stable Discharge Diet: heart healthy Activity: resume usual activities as tolerated Hygiene: may shower Weight Bearing at Discharge: full weight bearing Driving: no restrictions Contact your physician if you experience:: fever over 101, Difficulty voiding, Redness or swelling, Nausea/Vomiting, Shortness of breath, Bleeding, pain uncontrolled by pain medications - Discharge Medications New Clotrimazole 1% Cream [Lotrimin 1% Cream] 1 applic TOP BID #1 unit Continue Metformin HCl 1,000 mg PO BID W/MEALS glipiZIDE [Glipizide] 5 mg PO BIDAC Atenolol [Tenormin] 25 mg PO BID Amlodipine Besylate 5 mg PO DAILY Hyoscyamine Sulfate 0.125 mg PO Q4H PRN PRN Reason: Dry Mouth Valsartan/Hydrochlorothiazide [Valsartan-Hctz 320-25 mg Tab] 1 each PO DAILY Aspirin EC Tab 81 mg PO DAILY Amiodarone HCl 200 mg PO BID Pravastatin [Pravachol] 40 mg PO DAILY Omeprazole 20 mg PO DAILY - Follow Up or Referral - Forms/Instructions Additional Discharge Instructions: Patient will keep follow-up appointment with Dr. Gomez in 2 weeks Exam - Constitutional Vitals: Period Temp Pulse Resp BP Sys/Leavitt Pulse Ox Last 24 Hr 97.2 F-98.1 F 59-65 16-21 139-171/72-87 93-97 Exam: General: Appears well with no apparent distress. Pleasant and cooperative. Appears comfortable. HEENT: PERRL, normocephalic, atraumatic. Mucous membranes moist. No jaundice noted. Conjunctiva moist and clear, sclerae anicteric Neck: No JVD/HJR, no thyromegaly or lymphadenopathy noted. No carotid bruit appreciated Cardiac: Regular rate and rhythm. No murmur rub or gallop. Lungs: Clear to auscultation without accessory muscle use to assist the respiratory pattern. Not requiring oxygen. Abdomen: Soft, bowel sounds normoactive. Nontender and nondistended. No abdominal bruit or thrill noted. No masses noted. Musculoskeletal: No fluid collection. Decreased range of motion is noted. Extremities: No clubbing, cyanosis noted. No edema noted. Upper extremity pulses 2+. Lower extremity pulses 2+. Capillary refill less than 3 seconds. Skin: No unusual lesions or rashes. No skin breakdown appreciated. Neuro: Awake, alert and oriented 3. Moves all extremities well without hemiparesis or paralysis. No essential tremor is appreciated. Discharge Results Labs on day of discharge: Labs from last 24 hours 12/27/16 12/27/16 12/27/16 09:11 08:04 04:41 Hgb 13.2 L Hct 39.5 L POC Glucose 90 80 12/26/16 12/26/16 12/26/16 19:55 15:51 15:38 Hgb 13.2 L Hct 39.1 L POC Glucose 265 H 147 H - Imaging and Cardiology Cardiology Procedure: report reviewed by de DS: Provider Date of admission: 12/24/16 15:35 Primary care physician: . No PCP Attending physician on admission: Shalom Sams MD Consults: 12/24/16 17:57 Consult to Pharmacy [CONS] Routine Reason for Pharmacy Consult: Adjust Meds Renal Funct 02/10/17 18:18 Consult to Dietitian [CONS] Routine Reason for Dietitian: Dietary Consult 12/25/16 13:41 Consult to Physician [CONS] Routine Comment: GI- BRBPR and abd pain Consulting Provider: Genaro Dickens Person Notified: Dr. Dickens Date Notified: 12/25/16 Time Notified: 14:05 Discharging clinician: Anastasiya Sparks NP Expected date of discharge: 12/27/16
[2016-12-27] MEDS ORDERED: CLOTRIMAZOLE 1% CREAM 15 GM TUBE TOP SCH (21:00)
== END 2016-12-27 15:02 | disposition home or self-care (01) ==
LOC: N.EDINP 13:37 → N.ED 13:37 → N.TELES 17:04
PROVIDERS: ADMIT Internal Medicine Cardiovascular Disease; ATTEND Internal Medicine Cardiovascular Disease

== ENCOUNTER 2017-07-28 16:39 | Inpatient (IN) ==
[2017-07-28] MEDS ORDERED: DEXTROSE 50% 25 GM/50 ML SYRINGE IV PRN (19:15)
[2017-07-28] MEDS ORDERED: GLUCAGON 1 MG VIAL IM PRN (19:15)
--- NOTE | 2017-07-28 19:21 | Hospitalist History & Physical ---
Assessment and Plan (1) Cirrhosis of liver with ascites Status: Acute Assessment and plan: CT from outside facility confirms cirrhosis w/ ascites. Consult GI to evaluate. LFTs in am. CBC/BMP Current Visit: Yes (2) Diarrhea Status: Acute Assessment and plan: Stool cultures ordered. Current Visit: Yes (3) Diabetes Status: Chronic Assessment and plan: Pt. has type 2 diabetes. Most recently has been quite hypoglycemic. Will order accuchecks achs. SSI will be held for now. D50 ordered as needed. Current Visit: No (4) Hypertension Status: Chronic Assessment and plan: Restart home medications. Current Visit: No (5) Pacemaker Status: Chronic Current Visit: No History of Present Illness Chief complaint: abdominal pain/swelling History of present illness: Mr. Leung is a 71 year old male with a history of paroxysmal A. fib, hypertension , diabetes, GI bleed, nephrectomy and pacemaker was admitted direct admit from [facility] for evaluation of abdominal pain and ascites. Patient's brother and [id number] were present at bedside and provided some of history. Pt reports that he has seen his health decline since 05/17/17. He states around that time he began to have lower quadrant abdominal pain and frequent diarrhea. Pt. states that he also began to have decreased blood sugars often in the 40s-70s. Pt. reports being seen in ED for this and was supposed to follow up with Dr. Khan but that he missed that appointment. Pt. reports that he has been having diarrhea on and off for about 6 weeks. He states he saw some improvement up until Tuesday when he began to have sharp abdominal pain. It stated it worsened Tuesday and was accompanied by mild shortness of breath and n/v. Pt. presented to the ED at [facility] and CT revealed cirrhosis. Pt. was transferred to our facility for higher level of care. Dr. Sutton accepted the patient to our service. Pt. was seen and examined in med surg room 533. Pt's home meds have been reviewed and reconciled. GI will be consulted to evaluate. Home Medications Medication Instructions Recorded Confirmed Type Amiodarone HCl 100 mg PO BID 12/24/16 07/28/17 History Atenolol [Tenormin] 25 mg PO BID 12/24/16 07/28/17 History Hyoscyamine Sulfate 0.125 mg PO Q4H PRN 12/24/16 07/28/17 History Metformin HCl 1,000 mg PO BID W/MEALS 12/24/16 07/28/17 History Pravastatin [Pravachol] 40 mg PO BEDTIME 12/24/16 07/28/17 History Valsartan/Hydrochlorothiazide 1 each PO DAILY 12/24/16 07/28/17 History [Valsartan-Hctz 320-25 mg Tab] glipiZIDE [Glipizide] 5 mg PO BIDAC 12/24/16 07/28/17 History Potassium Chloride Cap/Tab [K Dur] 1 tablet PO DAILY 07/28/17 07/28/17 History Sulfameth/Trimeth 800-160 Tab 1 tablet PO BID 07/28/17 07/28/17 History [Bactrim DS Tab] Allergies Allergy/AdvReac Type Severity Reaction Status Date / Time No Known Allergies Allergy Verified 06/09/17 08:58 Medical,Surgical,& Family Hx - Medical History Cardio: History of: Cardiac Dysrhythmia, Hypertension, Pacemaker Psychological: No history of: Anxiety Disorders, ADHD, Behavior Problems, Bipolar Disorder, Depression, Previous Suicide Attempt, Psychiatric/Substance Abuse Tx, Schizophrenia, Violent Behavior, Psychiatric Problems HEENT: History of: Ear Problem (Bilaterally ear aid) Endocrine: History of: Diabetes Mellitus (NIDDM), Dyslipidemia Gastrointestinal: History of: GERD - Surgical History Thoracic Surgeries: Surgical HX of;: Kidney (Renal Surgery) (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 Absent: scleral icterus Pupils: Present: ESME - Respiratory Respiratory exam: Present: clear to auscultation bilaterally. Absent: wheezes - Cardiovascular Cardiovascular exam: Present: regular rate and rhythm - GI/Abdominal GI/Abdominal exam: Present: ascites, hypoactive bowel sounds, tenderness - Extremities Exam Extremities exam: Present: normal inspection, normal capillary refill, full ROM. Absent: edema - Neurological Exam Neurological exam: Present: alert, oriented X3 - Psychiatric Psychiatric exam: Present: normal affect, normal mood - Skin Skin exam: Present: normal color, warm, dry Results - Labs Labs: Labs reviewed from outside facility BC 13.03 RBC 3.6 Hematocrit 37.7 Hemoglobin 12 Platelet count 287 Sodium 141 Potassium 4.7 Chloride 109 Carbon dioxide 23 Creatinine 1.69 BUN 35 Calcium 8.3 Glucose 57 Bilirubin, total 1.8 [id number] ALT 108 AST 179 Amylase 41 Lipase 57
[2017-07-28] MEDS: AMIODARONE 200 MG TABLET PO SCH (22:06)
[2017-07-28] MEDS: ZINC OXIDE PASTE 113 GM TUBE TOP SCH (22:06)
[2017-07-28] MEDS: DEXTROSE 5% NACL 0.45% 1,000 ML IV SCH (22:06)
[2017-07-28] MEDS: ATENOLOL 25 MG TABLET PO SCH (22:06)
[2017-07-28] MEDS: PRAVASTATIN 40 MG TABLET PO SCH (22:06)
[2017-07-29] MEDS: INSULIN LISPRO 100 UNIT/ML SUBCUT SCH ×4 (01:05→18:04)
[2017-07-29 08:07] LABS: Basophils % 0.2 % (0.0-0.8); Eosinophils # 0.2 10*3/uL (0.0-0.87); Eosinophils % 1.8 % (0.00-10.9); Hematocrit 34.6 VOL% (42.0-52.0); Hemoglobin 11.8 GM/DL (14.0-18.0); Immature Granulocytes % 0.3 %; Immature Granulocytes Absolute 0.03 #; Lymphocytes # 1.5 10*3/uL (1.4-4.0); Lymphocytes % 14.6 % (21.2-54.2); Mean Corpuscular HGB Conc 34.1 GM/DL (32-36); Mean Corpuscular Hemoglobin 35 PG (27-34); Mean Corpuscular Volume 102.7 FL (87-102); Mean Platelet Volume 10.4 FL (9.6-12.0); Monocytes # 0.8 10*3/uL (0.11-0.8); Monocytes % 8.1 % (1.7-12.7); Neutrophils # 7.7 10*3/uL (1.4-7.4); Platelet Count 225 T/CUMM (130-400); Red Blood Count 3.37 MC/CUMM (3.8-5.5); Red Cell Distribution Width 17.6 % (9.3-17.3); White Blood Count 10.2 T/CUMM (4-12)
[2017-07-29 08:43] LABS: Albumin 2.1 G/DL (3.4-5.0); Bilirubin,Total 1.4 MG/DL (0.2-1.0); Calcium 7.8 MG/DL (8.5-10.1); Osmolality,Calculated 288.3 MOS/KG (273-304); Potassium 4.8 MMOL/L (3.5-5.1); Total Protein 5.7 G/DL (6.4-8.3)
[2017-07-29 08:44] LABS: Albumin 2.1 G/DL (3.4-5.0); Bilirubin,Direct 0.82 MG/DL (0.0-0.20); Bilirubin,Indirect 0.9 MG/DL (0.0-1.0); Bilirubin,Total 1.7 MG/DL (0.2-1.0); Total Protein 5.7 G/DL (6.4-8.3)
--- NOTE | 2017-07-29 08:53 | Gastrointestinal Consult Note ---
Assessment and Plan (1) Abdominal pain Status: Acute Assessment and plan: 07/29-5 day history of abdominal pain with increased shortness of breath. Findings on CT of abdomen and outside facility of nodular liver as well as ascites. No prior history of cirrhosis or prior alcohol use. Stool studies are negative at present time. Negative for occult blood as well. Obtain hepatitis panel. Consult IR for paracentesis today. Plan an addendum to followed by Dr. Khan. Current Visit: Yes History of Present Illness Chief complaint: Cirrhosis, ascites History of present illness: Mr. Leung is a 71 year old male who was admitted to the hospital on yesterday with complaints of abdominal pain and swelling. Patient has a prior history of atrial fibrillation, hypertension, diabetes, GI bleed, nephrectomy, and pacemaker placement. Patient is a fair historian therefore information is also obtained from chart review. Patient states that over the last several weeks he has not felt well. He states that he has had some off and on lower quadrant abdominal pain but associated with diarrhea. He states that sometimes he has multiple stools a day and other times he does not. He does deny any overt bleeding with this. He denies any fever or chills. He states that he has no nausea or vomiting. He is noted to have the last several days starting on Tuesday that his abdomen began to swell. He states that he has constant discomfort in his abdomen he says that he had an increase in shortness of breath as well. Patient then presented to the emergency room [facility] and at that time he had a CT scan done which showed ascites as well as nodular appearance of the liver. He was then transferred to our facility for further evaluation. He was last seen in our facility in December of this year for rectal bleed. He underwent colonoscopy at that time which did not show ischemia or diverticuli to explain his bleeding at that time. Recommendations were to repeat in 10 years at that time. Patient states that he has never been diagnosed with cirrhosis to his knowledge. He denies a history of alcohol use nor tobacco use. He does state that since October he has lost approximately 35 pounds due to loss of appetite and inability to eat more than a few bites at a time. He denies any reports of melena or hematochezia. He has never had paracentesis in the past. H&H is stable . Stools are negative for occult blood. Other stool studies are negative as well presenting to his diarrhea. LFTs noted with a bilirubin 1.7, AST 144, ALT 97, alkaline phosphatase 221. Albumin 2.1. Home Medications Medication Instructions Recorded Confirmed Type Amiodarone HCl 100 mg PO BID 12/24/16 07/28/17 History Atenolol [Tenormin] 25 mg PO BID 12/24/16 07/28/17 History Hyoscyamine Sulfate 0.125 mg PO Q4H PRN 12/24/16 07/28/17 History Metformin HCl 1,000 mg PO BID W/MEALS 12/24/16 07/28/17 History Pravastatin [Pravachol] 40 mg PO BEDTIME 12/24/16 07/28/17 History Valsartan/Hydrochlorothiazide 1 each PO DAILY 12/24/16 07/28/17 History [Valsartan-Hctz 320-25 mg Tab] glipiZIDE [Glipizide] 5 mg PO BIDAC 12/24/16 07/28/17 History Potassium Chloride Cap/Tab [K Dur] 1 tablet PO DAILY 07/28/17 07/28/17 History Sulfameth/Trimeth 800-160 Tab 1 tablet PO BID 07/28/17 07/28/17 History [Bactrim DS Tab] Allergies Allergy/AdvReac Type Severity Reaction Status Date / Time No Known Allergies Allergy Verified 06/09/17 08:58 Medical,Surgical,& Family Hx - Medical History Cardio: History of: Cardiac Dysrhythmia, Hypertension, Pacemaker Psychological: No history of: Anxiety Disorders, ADHD, Behavior Problems, Bipolar Disorder, Depression, Previous Suicide Attempt, Psychiatric/Substance Abuse Tx, Schizophrenia, Violent Behavior, Psychiatric Problems HEENT: History of: Ear Problem (Bilaterally ear aid) Endocrine: History of: Diabetes Mellitus (NIDDM), Dyslipidemia Gastrointestinal: History of: GERD - Surgical History Thoracic Surgeries: Surgical HX of;: Kidney (Renal Surgery) (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), Nephrectomy Abdominal Surgeries: Surgical HX of: Appendectomy Patient denies: Cholecystectomy - Family History Family History: Reports;: Family Cancer (Mother(kidney)), Family Diabetes - Social History Smoking Status: Never smoker Frequency of Alcohol Use: None Type of Drug Use: None 12 point system: reviewed and no additional remarkable complaints except as stated - Constitutional Constitutional: Present: as per HPI, weight loss - EENT Eyes: Present: as per HPI Ears: Present: as per HPI Nose, mouth and throat: Present: as per HPI - Cardiovascular Cardiovascular: Present: as per HPI, dyspnea - Respiratory Respiratory: Present: as per HPI - Gastrointestinal Gastrointestinal: Present: as per HPI, abdominal pain, diarrhea - Genitourinary Genitourinary: Present: as per HPI - Musculoskeletal Musculoskeletal: Present: as per HPI - Neurological Neurological: Present: as per HPI - Psychiatric Psychiatric: Present: as per HPI - Endocrine Endocrine: Present: as per HPI - Hematologic/Lymphatic Hematologic/Lymphatic: Present: as per HPI Exam - Constitutional Vitals: Period Temp Pulse Resp BP Sys/Leavitt Pulse Ox Last 24 Hr 97.6 F-98.6 F 59-60 17-21 117-140/65-80 92-97 General appearance: normal weight, no acute distress - Head Head exam: Present: normal inspection, normocephalic - Eye Eye exam: Present: other (Lids and conjunctive are unremarkable). Absent: scleral icterus - ENT ENT exam: Present: normal exam, normal oropharynx - Neck Neck exam: Present: normal inspection - Respiratory Respiratory exam: Present: clear to auscultation bilaterally. Absent: rales, rhonchi, wheezes - Cardiovascular Cardiovascular exam: Present: regular rate and rhythm. Absent: diastolic murmur , JVD, systolic murmur - GI/Abdominal GI/Abdominal exam: Present: normal bowel sounds, ascites, distended, soft. Absent: mass, organomegaly, tenderness - Extremities Exam Extremities exam: Present: normal inspection, full ROM - Back Exam Back exam: Present: normal inspection - Neurological Exam Neurological exam: Present: alert, oriented X3 - Psychiatric Psychiatric exam: Present: normal affect, normal mood - Skin Skin exam: Present: normal color, warm, dry Results - Labs CBC & BMP: 07/29/17 07:59 Lab Results: I have reviewed the past 24 hour labs
[2017-07-29] MEDS ORDERED: POTASSIUM CHLORIDE 20 MEQ TABLET PO SCH (09:00)
[2017-07-29 10:58] LABS: Hepatitis A Ab IgM Quant 0.11 Index; Hepatitis A Ab IgM Result Negative (Negative); Hepatitis B Core IgM Quant 0.12 Index; Hepatitis B Core IgM Result Negative (Negative); Hepatitis B Surface Ag Quant 0.16 Index; Hepatitis B Surface Ag Result Negative (Negative); Hepatitis C Virus Ab Quant 0.09 Index; Hepatitis C Virus Ab Result Negative (Negative)
--- NOTE | 2017-07-29 11:48 | Post Interventional Procedure ---
Pre-op diagnosis: New-onset ascites Post-op diagnosis: same Procedure: Ultrasound-guided paracentesis Radiologist: Tj Tello Anesthesia: local Specimens: other (4800 cc of fluid obtained for laboratory) Estimated blood loss: none Complications: none Condition: stable Assessment and Plan - Time spent with patient Time spent with patient: Less than 30 minutes
[2017-07-29] MEDS ORDERED: DEXTROSE 50% 25 GM/50 ML VIAL IV PRN (12:02)
[2017-07-29] MEDS ORDERED: GLUCAGON 1 MG VIAL IM PRN (12:02)
--- NOTE | 2017-07-29 13:16 | Ultrasound Report ---
US paracentesis abd w/image Indication: New onset ascites. Ultrasound-guided paracentesis Description: A formal timeout was performed. Maximum sterile barrier technique was used. The right lower quadrant was prepped and draped in sterile fashion. Under sonographic guidance, a 6 [place] pigtail catheter was advanced into the ascites using trocar technique. A captured sonographic image documents needle position. The needle was removed. Through the catheter, we obtained a total of 4800 cc of straw-colored ascites. No additional fluid could be obtained. Therefore, the catheter was removed. A bandage was placed at the puncture site. The patient tolerated the procedure well. Specimen: 4800 cc of straw-colored clear ascites held for lab. Impression: Ultrasound-guided paracentesis. PROCEDURE INTERPRETED AT [facility] DEPARTMENT OF RADIOLOGY Final Report Signed by: Tj Tello M.D.
[2017-07-29] MEDS: VALSARTAN/HCTZ 160-12.5 MG TABLET PO SCH (13:22)
[2017-07-29] MEDS: AMIODARONE 200 MG TABLET PO SCH ×2 (13:23→20:57)
[2017-07-29] MEDS: ATENOLOL 25 MG TABLET PO SCH ×2 (13:23→20:58)
[2017-07-29] MEDS: PANTOPRAZOLE 40 MG TABLET PO SCH (13:23)
[2017-07-29] MEDS: ZINC OXIDE PASTE 113 GM TUBE TOP SCH ×2 (13:24→20:58)
[2017-07-29 13:27] LABS: % Iron Saturation 47.3 % (18-50); Ferritin 444.1 ng/ml (26-388)
[2017-07-29 14:04] LABS: RBC,Peritoneal Fluid 84 T/CUMM
--- NOTE | 2017-07-29 14:08 | Event Note ---
Serum ascites albumin gradient greater than 1.2 consistent with portal hypertension etiology for ascites. Plan to add Aldactone and Lasix. Ferritin level elevated at 440 with transferrin saturation 47%. I will check hemochromatosis gene analysis.
--- NOTE | 2017-07-29 16:41 | Hospitalist Progress Note ---
Hospitalist: Subjective Interval history: Patient was admitted with ascites and workup for his cirrhosis of liver. He says that his abdominal discomfort is better after paracentesis. Exam - Constitutional Vitals: Period Temp Pulse Resp BP Sys/Leavitt Pulse Ox Last 24 Hr 97.6 F-98.6 F 59-60 16-21 115-163/60-80 92-97 Exam: General: [No Acute Distress] HEENT: [Normocephalic, atraumatic, Extra ocular movements intact] Neck: [Supple, No JVD] Chest: [Clear to auscultation B/L] CV: [S1 + S2 audible without murmur, gallop or rub] Abd: [soft, ascites +] Ext: [Trace edema] Skin: [No purpura, bruising or rash] Rheumatologic: [No Joint deformities] Neurologic: [Strength 5/5 all extremities, no gross sensory deficits] Results - Labs CBC & BMP: 07/29/17 07:59 07/29/17 07:59 - Impressions Assessment and Plan: (1) 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 Workup is in progress. Agree with hemochromatosis gene assay, as his ferritin was elevated Current Visit: Yes (2) Diarrhea Status: Acute Assessment and plan: This is better, follow-up stool studies. Current Visit: Yes (3) Diabetes Status: Chronic Assessment and plan: Pt. has type 2 diabetes. Most recently has been quite hypoglycemic. Continue accuchecks achs. SSI on hold for now. D50 as needed. Current Visit: No (4) Hypertension, Ess Status: Chronic Assessment and plan: Continue home meds Current Visit: No
[2017-07-29] MEDS: FUROSEMIDE 40 MG TABLET PO SCH (17:38)
[2017-07-29] MEDS: DEXTROSE 5% NACL 0.45% 1,000 ML IV SCH (17:38)
[2017-07-29] MEDS: SPIRONOLACTONE 50 MG TABLET PO SCH (17:38)
[2017-07-29 19:17] LABS: Neutrophils,Peritoneal Fluid 31 %
[2017-07-29] MEDS: PRAVASTATIN 40 MG TABLET PO SCH (20:57)
[2017-07-30] MEDS: INSULIN LISPRO 100 UNIT/ML SUBCUT SCH ×4 (01:00→17:19)
[2017-07-30] MEDS: SPIRONOLACTONE 50 MG TABLET PO SCH (09:06)
[2017-07-30] MEDS: ZINC OXIDE PASTE 113 GM TUBE TOP SCH ×2 (09:06→20:25)
[2017-07-30] MEDS: ATENOLOL 25 MG TABLET PO SCH ×2 (09:06→20:26)
[2017-07-30] MEDS: AMIODARONE 200 MG TABLET PO SCH ×2 (09:06→20:25)
[2017-07-30] MEDS: VALSARTAN/HCTZ 160-12.5 MG TABLET PO SCH (09:06)
[2017-07-30] MEDS: FUROSEMIDE 40 MG TABLET PO SCH (09:06)
[2017-07-30] MEDS: PANTOPRAZOLE 40 MG TABLET PO SCH (09:06)
[2017-07-30] MEDS: DEXTROSE 5% NACL 0.45% 1,000 ML IV SCH (13:50)
--- NOTE | 2017-07-30 14:57 | Hospitalist Progress Note ---
Assessment and Plan (1) Abnormal weight loss Status: Acute Assessment and plan: I am concerned about possibility of malignancy in this gentleman. However he is eating is also been subnormal because of early satiety. There may be some gastric pathology. His presenting symptom complex suggests high portal pressures. This could cause gastric and esophageal varices. As such early satiety can be on outcome. Gastroenterology is on the case. Current Visit: Yes (2) Early satiety Status: Acute Assessment and plan: At one point will need gastric evaluation. Gastroenterology is on the case. Current Visit: Yes (3) Paroxysmal atrial fibrillation Status: Chronic Assessment and plan: Patient has a pacemaker on the right side of his chest. He however has been on amiodarone. Whether this drug could have caused his liver problem is not clear. His diagnosis would be a diagnosis of exclusion. Again we do have GI involvement in this case. This should be serologies done include antimitochondrial antibodies ARY reflex double-stranded DNA ferritin levels and possibly karyotyping for hemochromatosis. Current Visit: No Hospitalist: Subjective Interval history: Patient has been seen interviewed and examined and chart has been reviewed patient was admitted to the hospital with abdominal distention and discomfort status post paracentesis with removal 4.8 L of peritoneal fluid. This admission he finds that he has a cirrhotic liver. He has been having progressive weight loss over the course of the year he reports Mary Ann satiety no blood in the stool or vomiting of blood. Does have diarrhea however. He has a ferritin of 444 serum iron of 61 with a percent saturation 47.3% is within normal limits his cholesterol levels are normal he is some transient anemia with a history of 144 and ALT of 97 alkaline phosphatase of 221 bilirubin of 1.7 total. Is never drank alcohol and does not recall having a chronic itching to suggest primary biliary cirrhosis, history of overuse of Tylenol no history of risky occupation. No history of neurologic complaints hepatitis profile has been normal. Is never had an ultrasound of his abdomen but of the CT scan on this admission did not mention of any intrahepatic lesions to suggest hepatocellular carcinoma Exam - Constitutional Vitals: Period Temp Pulse Resp BP Sys/Leavitt Pulse Ox Last 24 Hr 97.3 F-98.0 F 60-60 18-20 90-123/52-60 90-93 General appearance: under weight - Head Head exam: Present: normocephalic, atraumatic, other (Temporal wasting) - Eye Eye exam: Present: EOMI, other (No icterus at this point) Pupils: Present: ESME - Respiratory Respiratory exam: Present: clear to auscultation bilaterally - Cardiovascular Cardiovascular exam: Present: regular rate and rhythm - GI/Abdominal GI/Abdominal exam: Present: normal bowel sounds, other (Slightly rotund no guarding) - Extremities Exam Extremities exam: Present: full ROM, other (Generalized weakness) - Neurological Exam Neurological exam: Present: alert, oriented X3, CN II-XII intact - Psychiatric Psychiatric exam: Present: normal affect, normal mood - Skin Skin exam: Present: warm (Skin looking skin), dry Results - Labs CBC & BMP: 07/29/17 07:59 07/29/17 07:59 Lab Results: I have reviewed the past 24 hour labs
[2017-07-30] MEDS: PRAVASTATIN 40 MG TABLET PO SCH (20:25)
[2017-07-31] MEDS: INSULIN LISPRO 100 UNIT/ML SUBCUT SCH ×4 (01:06→17:45)
[2017-07-31] MEDS: DEXTROSE 5% NACL 0.45% 1,000 ML IV SCH (06:43)
[2017-07-31] MEDS: SPIRONOLACTONE 50 MG TABLET PO SCH (09:56)
[2017-07-31] MEDS: FUROSEMIDE 40 MG TABLET PO SCH (09:56)
[2017-07-31] MEDS: ZINC OXIDE PASTE 113 GM TUBE TOP SCH ×2 (09:57→20:51)
[2017-07-31] MEDS: PANTOPRAZOLE 40 MG TABLET PO SCH (09:57)
[2017-07-31] MEDS: AMIODARONE 200 MG TABLET PO SCH ×2 (09:57→20:46)
[2017-07-31] MEDS: VALSARTAN/HCTZ 160-12.5 MG TABLET PO SCH (09:58)
[2017-07-31] MEDS: ATENOLOL 25 MG TABLET PO SCH ×2 (09:58→20:51)
--- NOTE | 2017-07-31 12:56 | Hospitalist Progress Note ---
Assessment and Plan (1) Abnormal weight loss Status: Acute Assessment and plan: I am concerned about possibility of malignancy in this gentleman. However he is eating is also been subnormal because of early satiety. There may be some gastric pathology. His presenting symptom complex suggests high portal pressures. This could cause gastric and esophageal varices. As such early satiety can be on outcome. Gastroenterology is on the case. Current Visit: Yes (2) Early satiety Status: Acute Assessment and plan: At one point will need gastric evaluation. Gastroenterology is on the case. Current Visit: Yes (3) Paroxysmal atrial fibrillation Status: Chronic Assessment and plan: Patient has a pacemaker on the right side of his chest. He however has been on amiodarone. Whether this drug could have caused his liver problem is not clear. His diagnosis would be a diagnosis of exclusion. Again we do have GI involvement in this case. This should be serologies done include antimitochondrial antibodies ARY reflex double-stranded DNA ferritin levels and possibly karyotyping for hemochromatosis. Current Visit: No (4) Abdominal pain Status: Acute Assessment and plan: Mild analgesia at this point. There is no suggestion of peritonitis. I will continue to observe Current Visit: Yes Hospitalist: Subjective Interval history: Patient has been seen interviewed and examined and chart has been reviewed. Main complaint today that he had a drop in blood pressure overnight. He did not notice it because he is sleeping. Patient is on dual diuretics using Lasix and Spironolactone at this point will go to be worried about possibility of a contraction of intravascular volume. He had come to the hospital with ascites status post paracentesis of 4.8 L of fluid. The serum ascites albumin gradient was more than 1 suggesting portal hypertension. Yesterday he did report to me about early satiety disease and will probably need some upper GI evaluation. He has not had any events of bleeding. He is not on a beta-cipriano at this point but with these marginal systolic blood pressures. He is not on a beta cipriano at this point. He is also complaining of abdominal pain today. If this continues may have to do another diagnostic paracentesis and evaluate for possibility of infection. Because of his cirrhosis is known as mentioned yesterday gastroenterology is on the case and will report to find that what could have happened. Has a history of use of amiodarone and that is a potential risk for development of cirrhosis. Exam - Constitutional Vitals: Period Temp Pulse Resp BP Sys/Leavitt Pulse Ox Last 24 Hr 97.4 F-98.6 F 60-60 16-18 92-115/50-60 91-96 General appearance: no acute distress, under weight - Head Head exam: Present: normocephalic - Eye Eye exam: Present: EOMI, other (Anicteric conjunctival petechia) Pupils: Present: ESME - Respiratory Respiratory exam: Present: clear to auscultation bilaterally - Cardiovascular Cardiovascular exam: Present: regular rate and rhythm - GI/Abdominal GI/Abdominal exam: Present: normal bowel sounds, other (Mildmoderate increased gas of the abdomen) - Extremities Exam Extremities exam: Present: full ROM - Neurological Exam Neurological exam: Present: alert, oriented X3, CN II-XII intact - Psychiatric Psychiatric exam: Present: normal affect, normal mood - Skin Skin exam: Present: normal color, warm, dry Results - Labs CBC & BMP: 07/29/17 07:59 07/29/17 07:59 Lab Results: I have reviewed the past 24 hour labs (We will repeat CMP magnesium and CBC tomorrow)
[2017-07-31] MEDS: PRAVASTATIN 40 MG TABLET PO SCH (20:46)
[2017-07-31] MEDS ORDERED: HYDROmorphone 2 MG/1 ML VIAL IV ONE (22:51)
[2017-07-31] MEDS: ONDANSETRON 4 MG/2 ML VIAL IV PRN (23:18)
[2017-08-01] MEDS: INSULIN LISPRO 100 UNIT/ML SUBCUT SCH ×4 (00:41→17:48)
[2017-08-01] MEDS: DEXTROSE 5% NACL 0.45% 1,000 ML IV SCH ×2 (06:30→23:04)
[2017-08-01 06:37] LABS: Basophils % 0.1 % (0.0-0.8); Eosinophils % 0.4 % (0.00-10.9); Hematocrit 34.7 VOL% (42.0-52.0); Immature Granulocytes % 0.7 %; Immature Granulocytes Absolute 0.08 #; Lymphocytes # 1.2 10*3/uL (1.4-4.0); Lymphocytes % 10.8 % (21.2-54.2); Mean Corpuscular HGB Conc 34.6 GM/DL (32-36); Mean Corpuscular Hemoglobin 35 PG (27-34); Mean Corpuscular Volume 101.2 FL (87-102); Mean Platelet Volume 10.8 FL (9.6-12.0); Monocytes # 0.7 10*3/uL (0.11-0.8); Platelet Count 201 T/CUMM (130-400); Red Blood Count 3.43 MC/CUMM (3.8-5.5); Red Cell Distribution Width 17.6 % (9.3-17.3)
[2017-08-01 07:22] LABS: Albumin 1.8 G/DL (3.4-5.0); Bilirubin,Total 1.4 MG/DL (0.2-1.0); Calcium 7.4 MG/DL (8.5-10.1); Magnesium 2.2 MG/DL (1.8-2.4); Osmolality,Calculated 287.8 MOS/KG (273-304); Potassium 4.8 MMOL/L (3.5-5.1); Total Protein 5.2 G/DL (6.4-8.3)
--- NOTE | 2017-08-01 08:49 | Gastrointestinal Progress Note ---
Assessment and Plan (1) Abdominal pain Status: Acute Assessment and plan: 08/01-continued complaints of abdominal discomfort. Serological workup is pending at this present time. Awaiting daily weight for today however at 2 kg on yesterday. Creatinine up to 2.2. Continue to monitor this time. Plan an addendum to followed by Dr. Khan. 07/29-5 day history of abdominal pain with increased shortness of breath. Findings on CT of abdomen and outside facility of nodular liver as well as ascites. No prior history of cirrhosis or prior alcohol use. Stool studies are negative at present time. Negative for occult blood as well. Obtain hepatitis panel. Consult IR for paracentesis today. Plan an addendum to followed by Dr. Khan. Current Visit: Yes Gastroenterology - PN: Subj Interval history: CC: Ascites Patient is seen awake and alert lying in bed. States he is feeling about the same at this time. He has a poor appetite with minimal p.o. intake. He states that his abdominal discomfort is improved however he can feel the fluid returning at this time. No repeat weights noted yet for today however he was up 2 kg on yesterday. He denies shortness of breath at this time. Serologic workup for hemochromatosis and autoimmune liver disease is still pending at this time. Creatinine is elevated today at 2.2. LFTs are essentially unchanged. ARY is negative. Abdomen is soft, distended, nontender to palpation ROS: Denies shortness breath or chest pain Exam (Progress Note) - Constitutional Vitals: Period Temp Pulse Resp BP Sys/Leavitt Pulse Ox Last 24 Hr 97.2 F-98.2 F 58-60 16-18 102-149/50-80 91-94 General appearance: normal weight, no acute distress - Head Head exam: Present: normal inspection, normocephalic - Eye Eye exam: Present: other (Lids and conjunctivae are unremarkable). Absent: scleral icterus - ENT ENT exam: Present: normal exam, normal oropharynx - Neck Neck exam: Present: normal inspection - Respiratory Respiratory exam: Present: clear to auscultation bilaterally. Absent: rales, rhonchi, wheezes - Cardiovascular Cardiovascular exam: Present: regular rate and rhythm. Absent: diastolic murmur , JVD, systolic murmur - GI/Abdominal GI/Abdominal exam: Present: normal bowel sounds, ascites, distended, soft. Absent: mass, organomegaly, tenderness - Extremities Exam Extremities exam: Present: normal inspection, full ROM - Back Exam Back exam: Present: normal inspection - Neurological Exam Neurological exam: Present: alert, oriented X3 - Psychiatric Psychiatric exam: Present: normal affect, normal mood - Skin Skin exam: Present: normal color, warm, dry Results - Labs CBC & BMP: 08/01/17 06:10 08/01/17 06:10 Lab Results: I have reviewed the past 24 hour labs
[2017-08-01] MEDS: FUROSEMIDE 40 MG TABLET PO SCH (09:45)
[2017-08-01] MEDS: AMIODARONE 200 MG TABLET PO SCH (09:45)
[2017-08-01] MEDS: ATENOLOL 25 MG TABLET PO SCH ×2 (09:55→21:05)
[2017-08-01] MEDS: VALSARTAN/HCTZ 160-12.5 MG TABLET PO SCH (09:55)
[2017-08-01] MEDS: ZINC OXIDE PASTE 113 GM TUBE TOP SCH ×2 (09:55→21:05)
[2017-08-01] MEDS: SPIRONOLACTONE 50 MG TABLET PO SCH (10:03)
[2017-08-01] MEDS: PANTOPRAZOLE 40 MG TABLET PO SCH (10:03)
[2017-08-01] MEDS: ONDANSETRON 4 MG/2 ML VIAL IV PRN ×2 (10:11→21:05)
--- NOTE | 2017-08-01 13:22 | Cardiology Consult Note ---
Assessment and Plan - Time spent with patient Time spent with patient: Greater than 30 minutes (chart review, exam) (1) Pacemaker Status: Chronic Assessment and plan: The patient is pacemaker dependent. This was placed for complete heart block Current Visit: No (2) Hypertension Status: Chronic Current Visit: No Qualifiers: Hypertension type: essential hypertension Qualified Code(s): I10 - Essential (primary) hypertension (3) Diabetes Status: Chronic Current Visit: No Qualifiers: Diabetes mellitus type: type 2 (4) Paroxysmal atrial fibrillation Status: Chronic Assessment and plan: On high risk medication amiodarone Current Visit: No (5) Diverticulosis Status: Chronic Current Visit: No (6) Cirrhosis of liver with ascites Status: Acute Assessment and plan: This is most likely pharmacologic related although differential include other as per GI. The patient has been on amiodarone hyoscyamine and metformin and a statin. I agree with discontinuation as many of these as possible. Further workup per GI. Consider steroids if clinically indicated Current Visit: Yes (7) Abnormal weight loss Status: Acute Assessment and plan: Certainly likely related to his cirrhotic disease Current Visit: Yes (8) Early satiety Status: Acute Current Visit: Yes History of Present Illness - Data of Consult Patient: known to practice within the last 3 years Consult date: 08/01/17 Requesting Physician: Bharathi Alicia Primary care physician: Shalom Kelly - Consult Narrative Reason for consult: Cirrhosis on amiodarone History of present illness: Mr. Leung is a 71 year old male CC: Bharathi Alicia MD - Home Medications and Allergies Home Medications: Home Medications Medication Instructions Recorded Confirmed Type Amiodarone HCl 100 mg PO BID 12/24/16 07/28/17 History Atenolol [Tenormin] 25 mg PO BID 12/24/16 07/28/17 History Hyoscyamine Sulfate 0.125 mg PO Q4H PRN 12/24/16 07/28/17 History Metformin HCl 1,000 mg PO BID W/MEALS 12/24/16 07/28/17 History Pravastatin [Pravachol] 40 mg PO BEDTIME 12/24/16 07/28/17 History Valsartan/Hydrochlorothiazide 1 each PO DAILY 12/24/16 07/28/17 History [Valsartan-Hctz 320-25 mg Tab] glipiZIDE [Glipizide] 5 mg PO BIDAC 12/24/16 07/28/17 History Potassium Chloride Cap/Tab [K Dur] 1 tablet PO DAILY 07/28/17 07/28/17 History Sulfameth/Trimeth 800-160 Tab 1 tablet PO BID 07/28/17 07/28/17 History [Bactrim DS Tab] Allergies/Adverse Reactions: Allergies Allergy/AdvReac Type Severity Reaction Status Date / Time No Known Allergies Allergy Verified 06/09/17 08:58 - Constitutional Constitutional: Present: anorexia, lethargy, malaise, weight loss - EENT Eyes: Absent: blurry vision, diplopia Nose, mouth and throat: Absent: dysphagia, epistaxis, nasal congestion - Cardiovascular Cardiovascular: Absent: chest pain at rest, chest pain with activity, orthopnea - Respiratory Respiratory: Absent: cough, dyspnea, change in phlegm color - Gastrointestinal Gastrointestinal: Present: abdominal pain, bloating, nausea. Absent: dyspepsia , dysphagia - Genitourinary Genitourinary: Absent: difficulty urinating, dysuria, hematuria, urinary frequency - Musculoskeletal Musculoskeletal: Absent: arthralgias, joint swelling - Neurological Neurological: Absent: abnormal gait, abnormal speech, disequilibrium, dizziness , headache(s), syncope, tremor(s) - Psychiatric Psychiatric: Absent: anxiety, depression - Endocrine Endocrine: Absent: cold intolerance, heat intolerance - Hematologic/Lymphatic Hematologic/Lymphatic: Absent: easy bleeding, easy bruising Medical,Surgical,& Family Hx - Medical History Cardio: History of: Cardiac Dysrhythmia (atrial fibrillation, paroxysmal), Hypertension, Pacemaker (CHB - pacer dependent) Psychological: No history of: Anxiety Disorders, ADHD, Behavior Problems, Bipolar Disorder, Depression, Previous Suicide Attempt, Psychiatric/Substance Abuse Tx, Schizophrenia, Violent Behavior, Psychiatric Problems HEENT: History of: Ear Problem (Bilaterally ear aid) Endocrine: History of: Diabetes Mellitus (NIDDM), Dyslipidemia Gastrointestinal: History of: GERD - Surgical History Thoracic Surgeries: Surgical HX of;: Kidney (Renal Surgery) (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), Nephrectomy Abdominal Surgeries: Surgical HX of: Appendectomy Patient denies: Cholecystectomy - Family History Family History: Reports;: Family Cancer (Mother(kidney)), Family Diabetes - Social History Smoking Status: Never smoker Frequency of Alcohol Use: None Type of Drug Use: None Marital Status: Lives With:: Alone Functional capacity: independent ambulation Physical Examination Vital Signs Temp Pulse Resp BP Pulse Ox 97.6 F 59 L 20 140/80 95 07/28/17 18:00 07/28/17 18:00 07/28/17 18:00 07/28/17 18:00 07/28/17 18:00 General: Present: Other (Chronically ill appearing, sallow) HEENT: Present: Pallor, Mucus Membranes Moist, Mucus Membranes Dry, Other ( sallow) Neck: Present: Supple Neck, Midline Trachea Cardiac: Present: Reg Rate and Rhythm, S1/S2 Lungs: Present: Normal Exam Neuro: Present: Cranial Nerve 2-12 Intact Abdomen: Present: Ascites, Distended. Absent: Tender /Rectal: Absent: No Masses Skin: Present: Clear Gait: Present: Normal Gait Extremities: Present: Normal Gait, Other (muscular atrophy). Absent: Edema Result/EKG - Labs CBC & BMP: 08/01/17 06:10 08/01/17 06:10 Labs: Laboratory Results - last 24 hr 07/29/17 07/31/17 07/31/17 Unknown 11:32 17:09 WBC RBC Hgb Hct MCV MCH MCHC RDW Plt Count MPV Neut % (Auto) Lymph % (Auto) Hood % (Auto) Eos % (Auto) Baso % (Auto) Neut # (Auto) Lymph # (Auto) Hood # (Auto) Eos # (Auto) Baso # (Auto) Immature Gran % Nucleated RBC % Immature Gran # Nucleated RBCs # Immature Plt Fraction Sodium Potassium Chloride Carbon Dioxide Anion Gap BUN Creatinine GFR Calculation BUN/Creatinine Ratio Glucose POC Glucose 226 H 186 H Calculated Osmolality Calcium Magnesium Total Bilirubin AST ALT Alkaline Phosphatase Total Protein Albumin Globulin Albumin/Globulin Ratio ARY Screen Negative (<1:160) 08/01/17 08/01/17 08/01/17 05:42 06:06 06:10 WBC 11.0 RBC 3.43 L Hgb 12.0 L Hct 34.7 L MCV 101.2 MCH 35 H MCHC 34.6 RDW 17.6 H Plt Count 201 MPV 10.8 Neut % (Auto) 82.0 H Lymph % (Auto) 10.8 L Hood % (Auto) 6.0 Eos % (Auto) 0.4 Baso % (Auto) 0.1 Neut # (Auto) 9.0 H Lymph # (Auto) 1.2 L Hood # (Auto) 0.7 Eos # (Auto) 0.0 Baso # (Auto) 0.0 Immature Gran % 0.7 Nucleated RBC % 0.0 Immature Gran # 0.08 Nucleated RBCs # 0.00 Immature Plt Fraction 0.0 Sodium Potassium Chloride Carbon Dioxide Anion Gap BUN Creatinine GFR Calculation BUN/Creatinine Ratio Glucose POC Glucose 197 H 248 H Calculated Osmolality Calcium Magnesium Total Bilirubin AST ALT Alkaline Phosphatase Total Protein Albumin Globulin Albumin/Globulin Ratio ARY Screen 08/01/17 08/01/17 06:10 11:38 WBC RBC Hgb Hct MCV MCH MCHC RDW Plt Count MPV Neut % (Auto) Lymph % (Auto) Hood % (Auto) Eos % (Auto) Baso % (Auto) Neut # (Auto) Lymph # (Auto) Hood # (Auto) Eos # (Auto) Baso # (Auto) Immature Gran % Nucleated RBC % Immature Gran # Nucleated RBCs # Immature Plt Fraction Sodium 137 Potassium 4.8 Chloride 105 Carbon Dioxide 24 Anion Gap 12.8 BUN 37 H Creatinine 2.20 H GFR Calculation 29 BUN/Creatinine Ratio 16.00 Glucose 208 H POC Glucose 223 H Calculated Osmolality 287.8 Calcium 7.4 L Magnesium 2.2 Total Bilirubin 1.40 H AST 125 H ALT 87 H Alkaline Phosphatase 224 H Total Protein 5.2 L Albumin 1.8 L Globulin 3.4 Albumin/Globulin Ratio 0.5 L ARY Screen
[2017-08-01] MEDS: ALBUMIN 25% 12.5 GM in PREMIX 1 EACH IV SCH ×2 (15:05→22:30)
--- NOTE | 2017-08-01 15:29 | Hospitalist Progress Note ---
Assessment and Plan (1) Abnormal weight loss Status: Acute Assessment and plan: I am concerned about possibility of malignancy in this gentleman. However he is eating is also been subnormal because of early satiety. There may be some gastric pathology. His presenting symptom complex suggests high portal pressures. This could cause gastric and esophageal varices. As such early satiety can be on outcome. Gastroenterology is on the case. Current Visit: Yes (2) Early satiety Status: Acute Assessment and plan: At one point will need gastric evaluation. Gastroenterology is on the case. Current Visit: Yes (3) Paroxysmal atrial fibrillation Status: Chronic Assessment and plan: Patient has a pacemaker on the right side of his chest. He however has been on amiodarone. Whether this drug could have caused his liver problem is not clear. His diagnosis would be a diagnosis of exclusion. Again we do have GI involvement in this case. This should be serologies done include antimitochondrial antibodies ARY reflex double-stranded DNA ferritin levels and possibly karyotyping for hemochromatosis. Current Visit: No (4) Abdominal pain Status: Acute Assessment and plan: Mild analgesia at this point. There is no suggestion of peritonitis. I will continue to observe Current Visit: Yes Hospitalist: Subjective Interval history: Patient has been seen interviewed and examined and chart has been reviewed. Admitted to the hospital with a ascites abdominal discomfort found to have severe cirrhosis. Is not known what is caused it. Could be chemical induced. Cardiology has seen the patient today and they have agreed with stopping amiodarone. She has had events of low blood pressure here on and off with bradycardia. She has atenolol 25 mg twice a day for beta blockade and management of portosystemic shunting. Short acting beta-cipriano would be advisable. Does not have any history of COPD I will therefore suggest changing it to propranolol 30 mg twice a day. Since coming to the hospital she is also been put on Lasix and Spironolactone this may be squeezing intravascular volume too much. Abdominal girth has increased some. He did have 4.8 L of fluid taken out since coming to the hospital. Her SAAG is above 1 suggesting portosystemic shunting. Exam - Constitutional Vitals: Period Temp Pulse Resp BP Sys/Leavitt Pulse Ox Last 24 Hr 97 F-98.2 F 58-60 16-18 102-149/50-80 91-94 General appearance: under weight, other (Most of the weight at this point is fluid in the belly) - Head Head exam: Present: normocephalic, atraumatic - Eye Eye exam: Present: EOMI, other Pupils: Present: ESME - Respiratory Respiratory exam: Present: clear to auscultation bilaterally - Cardiovascular Cardiovascular exam: Present: bradycardia, other (Regular rhythm) - GI/Abdominal GI/Abdominal exam: Present: normal bowel sounds, other (Protuberant abdomen with ascites no guarding) - Extremities Exam Extremities exam: Present: full ROM, other (Significant loss of muscle bulk) - Neurological Exam Neurological exam: Present: alert, oriented X3, CN II-XII intact - Psychiatric Psychiatric exam: Present: normal affect, normal mood, depressed - Skin Skin exam: Present: other (No jaundice. Patient has modest multiple excoriations on the skin.) Results - Labs CBC & BMP: 08/01/17 06:10 08/01/17 06:10 Lab Results: I have reviewed the past 24 hour labs (His creatinine is gone up to 2.2. I recommend cutting down on diuresis with removal of Lasix. I will keep him on Spironolactone. Check potassium)
[2017-08-02] MEDS: INSULIN LISPRO 100 UNIT/ML SUBCUT SCH ×4 (01:49→17:47)
[2017-08-02] MEDS: ALBUMIN 25% 12.5 GM in PREMIX 1 EACH IV SCH ×3 (07:06→21:44)
[2017-08-02 08:08] LABS: Calcium 7.5 MG/DL (8.5-10.1); Magnesium 2.1 MG/DL (1.8-2.4)
--- NOTE | 2017-08-02 09:05 | Hospitalist Progress Note ---
Assessment and Plan (1) Cirrhosis Status: Acute Assessment and plan: Laboratory testing demonstrates total bilirubin 1.4, alkaline phosphatase 224, AST 125, ALT 87, total protein 5.2. He appears stable at the present time. Current Visit: Yes Qualifiers: Hepatic cirrhosis type: unspecified hepatic cirrhosis (2) Diabetes Status: Chronic Assessment and plan: His glucose today is 171. He continues on sliding scale insulin coverage. Current Visit: No Qualifiers: Diabetes mellitus type: type 2 (3) Paroxysmal atrial fibrillation Status: Chronic Assessment and plan: He is in sinus rhythm today. Current Visit: No (4) Abdominal pain Status: Acute Assessment and plan: He has less abdominal pain today. Current Visit: Yes (5) Renal failure Status: Acute Assessment and plan: His BUN and creatinine today are 47 and 2.4 respectively. They were 37 and 2.2 yesterday. He appears to be experiencing worsening renal function. Current Visit: Yes Qualifiers: Renal failure chronicity: acute on chronic Chronic kidney disease stage: stage 3 (moderate) Hospitalist: Subjective Interval history: Patient spent an uneventful night. He is comfortable with no new complaints. He is being followed by gastroenterology and cardiology. Exam - Constitutional Vitals: Period Temp Pulse Resp BP Sys/Leavitt Pulse Ox Last 24 Hr 96.9 F-97.9 F 60-64 18-20 94-108/51-60 90-95 General appearance: no acute distress - Head Head exam: Present: normal inspection - Neck Neck exam: Present: normal inspection - Respiratory Respiratory exam: Present: clear to auscultation bilaterally - Cardiovascular Cardiovascular exam: Present: regular rate and rhythm - GI/Abdominal GI/Abdominal exam: Present: normal bowel sounds, distended, soft, other ( Nontender with no palpable masses or hepatosplenomegaly.) - Extremities Exam Extremities exam: Present: normal inspection - Neurological Exam Neurological exam: Present: alert - Skin Skin exam: Present: normal color, warm, intact Results - Labs CBC & BMP: 08/01/17 06:10 08/02/17 06:37
--- NOTE | 2017-08-02 11:17 | Pathology Report from [facility] ---
[facility] [place] ACCESSION # : [id number] PATIENT NAME : Brant Leung [place]if[place] A. ORDERING DR : TIM ROJAS MD CLINICAL HX: New onset ascites POST-OP DX: Same SPECIMEN INFO: Fluid,Paracentesis - 1000 mls yellow, cloudy CLASS: II CLASS COMMENTS: Acute, chronic inflammation, reactive mesothelials, proteinaceous material.CELL BLOCK: Same CLASS LEGEND: CLASS 0 Material inadequate for diagnosis because of (see comment) CLASS I Absence of atypical or abnormal cells CLASS II Atypical Cytology but no evidence of malignancy CLASS III Cytology suggestive of but not conclusive for malignancy CLASS IV Cytology strongly suggestive of malignancy CLASS V Cytology conclusive for malignancy COLLECTED DATE: 08/01/2017 [facility] REPORT DATE: 08/02/2017 ELECTRONICALLY SIGNED BY: Hiro Schaffer III, M.D. 08/02/2017 - 8:21:37 [email or web address]
[2017-08-02] MEDS ORDERED: ALBUMIN 25% 12.5 GM/50 ML VIAL IV ONE (11:57)
[2017-08-02] MEDS ORDERED: ALBUMIN 25% 25 GM in PREMIX 1 EACH IV ONE (12:00)
[2017-08-02] MEDS: ATENOLOL 25 MG TABLET PO SCH ×2 (12:16→21:47)
[2017-08-02] MEDS: VALSARTAN/HCTZ 160-12.5 MG TABLET PO SCH (12:16)
--- NOTE | 2017-08-02 12:49 | History and Physical Update ---
History and Physical Update - History and Physical H&P was reviewed, the patient examined and there: are no changes in the patients condition since last H&P was completed. - Physical Exam Mental Status: alert and oriented Heart: regular rate and rhythm Lung: clear to auscultation Abdomen: other (Soft, nontender, distended with ascites)
--- NOTE | 2017-08-02 12:51 | Operative Note ---
Date of procedure: 08/02/17 Pre-op diagnosis: Symptomatic ascites Procedure: Procedure: Large volume paracentesis Brief clinical abstract: Patient is a 71-year-old male with recent clinical diagnosis of cirrhosis and new onset ascites. He had paracentesis last week and fluid has recurred with increased abdominal distention and early satiety. He denies abdominal pain and has had no fever. Procedure findings: After informed consent was obtained, patient was placed in the supine position. Left lower quadrant of the abdomen was prepped in sterile manner. 5 cc 1% lidocaine was injected subcutaneously down to the level of the peritoneum. 1.8 inch catheter was inserted into the peritoneal space and a total of 5 L of straw-colored fluid obtained using vacuum bottles. He was given 25 g of IV albumin during the procedure. Patient appeared to tolerate the procedure well. Anesthesia: local Surgeon / Physician: Ubaldo Khan Estimated blood loss: minimal Specimens: none sent Condition: stable Disposition: no change Results - Labs CBC & BMP: 08/01/17 06:10 08/02/17 06:37 Discharge Plan - Discharge Medications No Action Metformin HCl 1,000 mg PO BID W/MEALS glipiZIDE [Glipizide] 5 mg PO BIDAC Atenolol [Tenormin] 25 mg PO BID Hyoscyamine Sulfate 0.125 mg PO Q4H PRN PRN Reason: Dry Mouth Valsartan/Hydrochlorothiazide [Valsartan-Hctz 320-25 mg Tab] 1 each PO DAILY Amiodarone HCl 100 mg PO BID Potassium Chloride Cap/Tab [K Dur] 1 tablet PO DAILY Pravastatin [Pravachol] 40 mg PO BEDTIME Sulfameth/Trimeth 800-160 Tab [Bactrim DS Tab] 1 tablet PO BID - Follow Up or Referral - Forms/Instructions
--- NOTE | 2017-08-02 13:06 | Event Note ---
Patient's creatinine trended up to 2.4. I think we need to hold Aldactone and valsartan/HCTZ for now. Would like for his renal function to stabilize before discharge.
[2017-08-02] MEDS ORDERED: GLUCAGON 1 MG VIAL IM PRN (13:41)
[2017-08-02] MEDS ORDERED: DEXTROSE 50% 25 GM/50 ML VIAL IV PRN (13:41)
--- NOTE | 2017-08-02 14:24 | Cardiology Progress Note ---
Nabil Borja April RN, am scribing for, and in the presence of, Iram Gomez DO 14 :24. Assessment and Plan (1) Abnormal weight loss Status: Acute Current Visit: Yes (2) Cirrhosis of liver with ascites Status: Acute Current Visit: Yes (3) Early satiety Status: Acute Current Visit: Yes (4) Diabetes Status: Chronic Current Visit: Yes Qualifiers: Diabetes mellitus type: type 2 (5) Diverticulosis Status: Chronic Current Visit: No (6) Hypertension Status: Chronic Current Visit: No Qualifiers: Hypertension type: essential hypertension Qualified Code(s): I10 - Essential (primary) hypertension (7) Pacemaker Status: Chronic Assessment and plan: Pacemaker dependent for complete heart block Current Visit: Yes (8) Paroxysmal atrial fibrillation Status: Chronic Current Visit: No Cardiology - PN: Subj Interval history: [employer]: Dr. Gomez Summary: Mr. Leung is a 71-year-old male with a history of paroxysmal atrial fibrillation, hypertension, diabetes, GI bleed, nephrectomy, and pacemaker. He had been seen at [facility] for evaluation of abdominal pain and ascites. He was transferred here July [address] from outside facility that suggested cirrhosis with ascites. On July 29 he underwent paracentesis with 4800 cc of fluid removed. Cardiology was consulted regarding discontinuing his amiodarone. August 02, 2017: Mr. Leung is resting in bed this morning. He denies any chest pain or shortness of breath. He does continue to have abdominal discomfort and ascites. Amiodarone was discontinued yesterday. I came by to see the patient earlier in the patient had gone for large volume paracentesis at approximately 5 L removed today I saw again this afternoon with Ferrer. The patient no real complaints but he is abdomen remains tender. The patient has what appears to be an overall poor prognosis with this degree of cirrhosis I had a long discussion with the patient and his sister at the bedside today. All offensive medicines have been discontinued. His creatinine is gotten worse and we are holding the valsartan hydrochlorothiazide and Aldactone. Exam (Progress Note) - Constitutional Vitals: Period Temp Pulse Resp BP Sys/Leavitt Pulse Ox Last 24 Hr 96.9 F-97.9 F 60-64 18-20 94-108/51-60 90-95 General appearance: under weight, other (Chronically ill-appearing) - Head Head exam: Absent: abrasion, hematoma - Eye Eye exam: Present: EOMI. Absent: periorbital swelling, laceration to eyelids - Neck Neck exam: Absent: lymphadenopathy, tenderness - Respiratory Respiratory exam: Present: clear to auscultation bilaterally. Absent: accessory muscle use, chest wall tenderness - Cardiovascular Cardiovascular exam: Present: regular rate and rhythm - GI/Abdominal GI/Abdominal exam: Present: ascites (This is clearly better post paracentesis), distended, tenderness - Extremities Exam Extremities exam: Absent: calf tenderness, edema - Neurological Exam Neurological exam: Present: alert, oriented X3 - Psychiatric Psychiatric exam: Present: normal affect, normal mood - Skin Skin exam: Present: warm, dry, other (He looks sallow and chronically ill) Result/EKG - Labs CBC & BMP: 08/01/17 06:10 08/02/17 06:37 Lab Results: I have reviewed the past 24 hour labs Labs: Laboratory Results - last 24 hr 08/01/17 08/01/17 08/01/17 11:38 16:05 23:32 Sodium Potassium Chloride Carbon Dioxide Anion Gap BUN Creatinine GFR Calculation BUN/Creatinine Ratio Glucose POC Glucose 223 H 183 H 180 H Calculated Osmolality Calcium Magnesium 08/02/17 08/02/17 08/02/17 05:59 06:37 06:44 Sodium 136 Potassium 5.0 Chloride 104 Carbon Dioxide 23 Anion Gap 14.0 BUN 47 H Creatinine 2.40 H GFR Calculation 27 BUN/Creatinine Ratio 19.00 Glucose 145 H POC Glucose 161 H 171 H Calculated Osmolality 286.0 Calcium 7.5 L Magnesium 2.1 Patricia Borja Shea, DO, personally performed the services described in this documentation, ascribed by Anusha Ferrer RN in my presence, and it is both accurate and complete .
[2017-08-02] MEDS: PANTOPRAZOLE 40 MG TABLET PO SCH (14:41)
[2017-08-02] MEDS: ZINC OXIDE PASTE 113 GM TUBE TOP SCH ×2 (14:41→21:46)
[2017-08-02] MEDS: SPIRONOLACTONE 50 MG TABLET PO SCH (14:42)
[2017-08-02] MEDS: DEXTROSE 5% NACL 0.45% 1,000 ML IV SCH (18:58)
[2017-08-03] MEDS: INSULIN LISPRO 100 UNIT/ML SUBCUT SCH ×4 (00:24→17:13)
[2017-08-03] MEDS: ALBUMIN 25% 12.5 GM in PREMIX 1 EACH IV SCH ×3 (06:42→23:18)
--- NOTE | 2017-08-03 08:35 | Gastrointestinal Progress Note ---
<Roxy Lynn Ailyn - Last Filed: 08/03/17 08:32> Assessment and Plan (1) Abdominal pain Status: Acute Assessment and plan: 08/03-paracentesis on yesterday with 5 L removed. Serology workup still pending. Weight unchanged. Repeat CMP today. Plan an addendum to followed by Dr. Khan. 08/01-continued complaints of abdominal discomfort. Serological workup is pending at this present time. Awaiting daily weight for today however at 2 kg on yesterday. Creatinine up to 2.2. Continue to monitor this time. Plan an addendum to followed by Dr. Khan. 07/29-5 day history of abdominal pain with increased shortness of breath. Findings on CT of abdomen and outside facility of nodular liver as well as ascites. No prior history of cirrhosis or prior alcohol use. Stool studies are negative at present time. Negative for occult blood as well. Obtain hepatitis panel. Consult IR for paracentesis today. Plan an addendum to followed by Dr. Khan. Current Visit: Yes Gastroenterology - PN: Subj Interval history: CC: Cirrhosis Patient seen awake and alert ambulating in room. States he had a fairly restful night. He continues to complain of some abdominal discomfort. He underwent paracentesis on yesterday with 5 L of fluid removed. He was noted to be have given IV albumin during the procedure. His weight remains unchanged today. He is noted to have several bowel movements on yesterday but he has had none as of this morning. No repeat labs noted at present. Abdomen is soft, bowel sounds noted. ROS: Denies shortness of breath or chest pain Exam (Progress Note) - Constitutional Vitals: Period Temp Pulse Resp BP Sys/Leavitt Pulse Ox Last 24 Hr 98.0 F-99.4 F 60-66 18-24 105-137/49-63 92-95 - Other Additional findings: General appearance: normal weight, no acute distress - Head Head exam: Present: normal inspection, normocephalic - Eye Eye exam: Present: other (Lids and conjunctivae are unremarkable). Absent: scleral icterus - ENT ENT exam: Present: normal exam, normal oropharynx - Neck Neck exam: Present: normal inspection - Respiratory Respiratory exam: Present: clear to auscultation bilaterally. Absent: rales, rhonchi, wheezes - Cardiovascular Cardiovascular exam: Present: regular rate and rhythm. Absent: diastolic murmur , JVD, systolic murmur - GI/Abdominal GI/Abdominal exam: Present: normal bowel sounds, ascites, distended, soft. Absent: mass, organomegaly, tenderness - Extremities Exam Extremities exam: Present: normal inspection, full ROM - Back Exam Back exam: Present: normal inspection - Neurological Exam Neurological exam: Present: alert, oriented X3 - Psychiatric Psychiatric exam: Present: normal affect, normal mood - Skin Skin exam: Present: normal color, warm, dry Results - Labs CBC & BMP: 08/01/17 06:10 08/02/17 06:37 Lab Results: I have reviewed the past 24 hour labs <Ubaldo Khan - Last Filed: 08/03/17 14:01> Exam (Progress Note) - Constitutional Vitals: Period Temp Pulse Resp BP Sys/Leavitt Pulse Ox Last 24 Hr 98.0 F-99.4 F 60-66 18-20 105-125/49-60 93-95 Results - Labs CBC & BMP: 08/01/17 06:10 08/03/17 08:50
[2017-08-03] MEDS: PANTOPRAZOLE 40 MG TABLET PO SCH (08:52)
[2017-08-03] MEDS: ATENOLOL 25 MG TABLET PO SCH ×2 (08:53→21:54)
[2017-08-03] MEDS: ZINC OXIDE PASTE 113 GM TUBE TOP SCH ×2 (08:53→21:53)
[2017-08-03] MEDS: SODIUM CHLORIDE 0.9% 1,000 ML IV SCH ×2 (09:10→23:58)
[2017-08-03 09:33] LABS: Bilirubin,Total 2.7 MG/DL (0.2-1.0); Osmolality,Calculated 283.8 MOS/KG (273-304); Potassium 4.3 MMOL/L (3.5-5.1); Total Protein 5.6 G/DL (6.4-8.3)
--- NOTE | 2017-08-03 09:36 | Hospitalist Progress Note ---
Assessment and Plan (1) Cirrhosis Status: Acute Assessment and plan: Laboratory testing demonstrates total bilirubin 1.4, alkaline phosphatase 224, AST 125, ALT 87, total protein 5.2. He appears stable at the present time. He is stable status post paracentesis with 5 L of serosanguineous fluid. Current Visit: Yes Qualifiers: Hepatic cirrhosis type: unspecified hepatic cirrhosis (2) Diabetes Status: Chronic Assessment and plan: His glucose today is 134. He continues on sliding scale insulin coverage. Current Visit: Yes Qualifiers: Diabetes mellitus type: type 2 (3) Paroxysmal atrial fibrillation Status: Chronic Assessment and plan: He is in sinus rhythm today. Current Visit: No (4) Abdominal pain Status: Acute Assessment and plan: Resolved. Current Visit: Yes (5) Renal failure Status: Acute Assessment and plan: His BUN and creatinine today are 47 and 2.4 respectively. They were 37 and 2.2 yesterday. He appears to be experiencing worsening renal function. I have begun him on sodium chloride 0.9% intravenous infusion at 50 mL/h. Current Visit: Yes Qualifiers: Renal failure chronicity: acute on chronic Chronic kidney disease stage: stage 3 (moderate) Hospitalist: Subjective Interval history: Mr. Leung underwent a paracentesis yesterday were moving 5 L of serosanguineous fluid. He states that his abdomen feels significantly better today. He is not experiencing nausea or vomiting. Laboratory testing yesterday demonstrated BUN and creatinine of 47 and 2.4 respectively. His BUN and creatinine on 07/29/17 were 30 and 1.6 respectively. I have begun him on intravenous infusion of sodium chloride 0.9% at 50 mL/h. He should be ready for discharge when his BUN and creatinine have improved. Exam - Constitutional Vitals: Period Temp Pulse Resp BP Sys/Leavitt Pulse Ox Last 24 Hr 98.0 F-99.4 F 60-66 18-24 105-137/49-63 92-95 General appearance: no acute distress - Head Head exam: Present: normal inspection - Neck Neck exam: Present: normal inspection - Respiratory Respiratory exam: Present: clear to auscultation bilaterally - Cardiovascular Cardiovascular exam: Present: regular rate and rhythm - GI/Abdominal GI/Abdominal exam: Present: normal bowel sounds, soft, other (Nontender with no palpable masses or hepatosplenomegaly. There is no distention.) - Extremities Exam Extremities exam: Present: normal inspection - Skin Skin exam: Present: normal color, warm, intact Results - Labs CBC & BMP: 08/01/17 06:10 08/02/17 06:37
--- NOTE | 2017-08-03 16:25 | Cardiology Progress Note ---
Nabil Borja April, RN, am scribing for, and in the presence of, Anastasiya Sparks NP 16:19. Assessment and Plan - Time spent with patient Time spent with patient: Greater than 30 minutes (1) Abnormal weight loss Status: Acute Assessment and plan: Since October 2017, patient has unintentionally continued to lose a significant amount of weight. At this time, he has a poor appetite. I did encourage him to take in enough nutrition. Current Visit: Yes (2) Cirrhosis of liver with ascites Status: Acute Assessment and plan: Amiodarone has been discontinued. Gastroenterology is following. Status post paracentesis, discomfort improved. Current Visit: Yes (3) Diabetes Status: Chronic Assessment and plan: Adequately controlled on current regimen. Current Visit: Yes Qualifiers: Diabetes mellitus type: type 2 (4) Diverticulosis Status: Chronic Assessment and plan: Continue his current medication treatment. Current Visit: No (5) Hypertension Status: Chronic Assessment and plan: Adequately controlled on Atenolol. Will adjust medications accordingly during hospital stay Current Visit: No Qualifiers: Hypertension type: essential hypertension Qualified Code(s): I10 - Essential (primary) hypertension (6) Pacemaker Status: Chronic Assessment and plan: Continue current plan of care Current Visit: Yes (7) Paroxysmal atrial fibrillation Status: Chronic Assessment and plan: Unfortunately, patient is not a candidate for anticoagulation for stroke prevention. Also, amiodarone has been discontinued. He is currently rate controlled and sounds regular. 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 Anusha Ferrer RN and I discussed this case as she is acting as my scribe. Summary: Mr. Leung is a 71-year-old male with a history of paroxysmal atrial fibrillation, hypertension, diabetes, GI bleed, nephrectomy, and pacemaker. He had been seen at [facility] for evaluation of abdominal pain and ascites. He was transferred here July [address] from outside facility that suggested cirrhosis with ascites. On July 29 he underwent paracentesis with 4800 cc of fluid removed. Cardiology was consulted regarding discontinuing his Amiodarone. August 02, 2017: Mr. Leung is resting in bed this morning. He denies any chest pain or shortness of breath. He does continue to have abdominal discomfort and ascites. Amiodarone was discontinued yesterday. I came by to see the patient earlier in the patient had gone for large volume paracentesis at approximately 5 L removed today I saw again this afternoon with Dory Nabil. The patient no real complaints but he is abdomen remains tender. The patient has what appears to be an overall poor prognosis with this degree of cirrhosis I had a long discussion with the patient and his sister at the bedside today. All offensive medicines have been discontinued. His creatinine is gotten worse and we are holding the valsartan hydrochlorothiazide and Aldactone. August 03, 2017: Mr. Leung had paracentesis with 5000 cc of fluid removed yesterday, he is feeling more comfortable today. Poor appetite. Currently receiving IV albumin. Diuretics, Valsartan being held until renal function normalizes. Amiodarone has been discontinued. Renal function minimally improved overnight (creatinine 2.1). Denies chest pain, heaviness or tightness. Vital signs been stable throughout the night. I will further discuss with Dr. Gomez and await additional recommendations. Exam (Progress Note) - Constitutional Vitals: Period Temp Pulse Resp BP Sys/Leavitt Pulse Ox Last 24 Hr 98.0 F-99.4 F 60-66 18-20 105-125/49-60 93-95 General appearance: under weight, cachectic, other (Chronically ill-appearing) - Head Head exam: Absent: abrasion, hematoma - Eye Eye exam: Present: EOMI. Absent: periorbital swelling, laceration to eyelids Pupils: Present: ESME, normal accommodation - ENT ENT exam: Present: normal external ear exam, normal oropharynx - Neck Neck exam: Absent: lymphadenopathy, tenderness, thyromegaly - Respiratory Respiratory exam: Present: clear to auscultation bilaterally. Absent: accessory muscle use, chest wall tenderness - Cardiovascular Cardiovascular exam: Present: regular rate and rhythm. Absent: carotid bruit, JVD - GI/Abdominal GI/Abdominal exam: Present: ascites (This is better post paracentesis), distended, tenderness - Extremities Exam Extremities exam: Present: normal capillary refill. Absent: calf tenderness, edema - Back Exam Back exam: Absent: CVA tenderness (L), CVA tenderness (R), muscle spasm - Neurological Exam Neurological exam: Present: alert, oriented X3 - Psychiatric Psychiatric exam: Present: normal affect, normal mood - Skin Skin exam: Present: warm, dry, other (He looks sallow and chronically ill) Result/EKG - Labs CBC & BMP: 08/01/17 06:10 08/03/17 08:50 Lab Results: I have reviewed the past 24 hour labs Labs: Laboratory Results - last 24 hr 08/02/17 08/03/17 08/03/17 16:46 00:03 05:59 Sodium Potassium Chloride Carbon Dioxide Anion Gap BUN Creatinine GFR Calculation BUN/Creatinine Ratio Glucose POC Glucose 196 H 203 H 115 H Calculated Osmolality Calcium Total Bilirubin AST ALT Alkaline Phosphatase Total Protein Albumin Globulin Albumin/Globulin Ratio 08/03/17 08/03/17 07:38 08:50 Sodium 137 Potassium 4.3 Chloride 107 Carbon Dioxide 21 Anion Gap 13.3 BUN 39 H Creatinine 2.10 H GFR Calculation 31 BUN/Creatinine Ratio 18.00 Glucose 128 H POC Glucose 134 H Calculated Osmolality 283.8 Calcium 8.0 L Total Bilirubin 2.70 H AST 99 H ALT 65 H Alkaline Phosphatase 180 H Total Protein 5.6 L Albumin 3.0 L Globulin 2.6 Albumin/Globulin Ratio 1.1 Clare Borja Bonnie E, NP, personally performed the services described in this documentation, ascribed by Anusha Ferrer RN in my presence, and it is both accurate and complete 625 .
[2017-08-04] MEDS: INSULIN LISPRO 100 UNIT/ML SUBCUT SCH ×4 (00:22→18:10)
[2017-08-04 06:53] LABS: Basophils % 0.2 % (0.0-0.8); Eosinophils # 0.2 10*3/uL (0.0-0.87); Eosinophils % 1.9 % (0.00-10.9); Hematocrit 30.6 VOL% (42.0-52.0); Hemoglobin 10.7 GM/DL (14.0-18.0); Immature Granulocytes % 0.6 %; Immature Granulocytes Absolute 0.05 #; Lymphocytes % 12.2 % (21.2-54.2); Mean Corpuscular Hemoglobin 35 PG (27-34); Mean Corpuscular Volume 100.3 FL (87-102); Mean Platelet Volume 11.2 FL (9.6-12.0); Monocytes # 0.7 10*3/uL (0.11-0.8); Monocytes % 8.5 % (1.7-12.7); Neutrophils # 6.3 10*3/uL (1.4-7.4); Neutrophils % 76.6 % (38.7-73.9); Platelet Count 147 T/CUMM (130-400); Red Blood Count 3.05 MC/CUMM (3.8-5.5); White Blood Count 8.3 T/CUMM (4-12)
[2017-08-04] MEDS: SODIUM CHLORIDE 0.9% 1,000 ML IV SCH (07:25)
[2017-08-04] MEDS: ALBUMIN 25% 12.5 GM in PREMIX 1 EACH IV SCH ×3 (07:25→22:37)
[2017-08-04 07:35] LABS: Calcium 7.6 MG/DL (8.5-10.1); Osmolality,Calculated 287.4 MOS/KG (273-304); Potassium 4.5 MMOL/L (3.5-5.1)
[2017-08-04] MEDS: ATENOLOL 25 MG TABLET PO SCH ×3 (08:10→21:07)
[2017-08-04] MEDS: PANTOPRAZOLE 40 MG TABLET PO SCH (08:10)
[2017-08-04] MEDS: ZINC OXIDE PASTE 113 GM TUBE TOP SCH ×2 (08:10→21:05)
--- NOTE | 2017-08-04 08:34 | Gastrointestinal Progress Note ---
<Roxy Lynn Ailyn - Last Filed: 08/04/17 08:32> Assessment and Plan (1) Abdominal pain Status: Acute Assessment and plan: 08/04-weights unchanged, creatinine down to 1.8. Continued abdominal discomfort. Okay to discharge from GI standpoint with repeat CMP 1 week. Plan an addendum to followed by Dr. Khan. 08/03-paracentesis on yesterday with 5 L removed. Serology workup still pending. Weight unchanged. Repeat CMP today. Plan an addendum to followed by Dr. Khan. 08/01-continued complaints of abdominal discomfort. Serological workup is pending at this present time. Awaiting daily weight for today however at 2 kg on yesterday. Creatinine up to 2.2. Continue to monitor this time. Plan an addendum to followed by Dr. Khan. 07/29-5 day history of abdominal pain with increased shortness of breath. Findings on CT of abdomen and outside facility of nodular liver as well as ascites. No prior history of cirrhosis or prior alcohol use. Stool studies are negative at present time. Negative for occult blood as well. Obtain hepatitis panel. Consult IR for paracentesis today. Plan an addendum to followed by Dr. Khan. Current Visit: Yes Gastroenterology - PN: Subj Interval history: CC: Abdominal pain Pt is seen, awake and alert, lying in bed. States that he feels about the same at this time. He states he is having some continued abdominal discomfort/ distention. Denies any nausea or vomiting. He is tolerating his diet at this time. Abdomen is soft, nontender. Creatnine is noted at 1.8, down from yesterday. Weight is unchanged at this time. ROS: Denies SOB or chest pain Exam (Progress Note) - Constitutional Vitals: Period Temp Pulse Resp BP Sys/Leavitt Pulse Ox Last 24 Hr 97.3 F-98.9 F 60-62 16-20 117-134/52-66 93-97 General appearance: normal weight, no acute distress - Head Head exam: Present: normal inspection, normocephalic - Eye Eye exam: Present: other (Lids and conjunctiva unremarkable). Absent: scleral icterus - ENT ENT exam: Present: normal exam, normal oropharynx - Neck Neck exam: Present: normal inspection - Respiratory Respiratory exam: Present: clear to auscultation bilaterally. Absent: rales, rhonchi, wheezes - Cardiovascular Cardiovascular exam: Present: regular rate and rhythm. Absent: diastolic murmur , JVD, systolic murmur - GI/Abdominal GI/Abdominal exam: Present: normal bowel sounds, ascites, distended, soft. Absent: mass, organomegaly, tenderness - Extremities Exam Extremities exam: Present: normal inspection, full ROM - Back Exam Back exam: Present: normal inspection - Neurological Exam Neurological exam: Present: alert, oriented X3 - Psychiatric Psychiatric exam: Present: normal affect, normal mood - Skin Skin exam: Present: normal color, warm, dry Results - Labs CBC & BMP: 08/04/17 06:00 08/04/17 06:00 Lab Results: I have reviewed the past 24 hour labs <Ubaldo Khan - Last Filed: 08/04/17 13:12> Exam (Progress Note) - Constitutional Vitals: Period Temp Pulse Resp BP Sys/Leavitt Pulse Ox Last 24 Hr 97.1 F-98.9 F 60-61 16-24 114-134/53-68 94-97 Results - Labs CBC & BMP: 08/04/17 06:00 08/04/17 06:00
--- NOTE | 2017-08-04 10:38 | Cardiology Progress Note ---
<Anastasiya Sparks E - Last Filed: 08/04/17 11:28> Assessment and Plan - Time spent with patient Time spent with patient: Greater than 30 minutes (1) Abnormal weight loss Status: Acute Assessment and plan: Since October 2017, patient has unintentionally continued to lose a significant amount of weight. At this time, he has a poor appetite. Reports he did take in more calories yesterday then he has been taking it in quite some time. Current Visit: Yes (2) Cirrhosis of liver with ascites Status: Acute Assessment and plan: Amiodarone has been discontinued. Gastroenterology is following. Status post paracentesis Tuesday, discomfort improved. Avoiding hepatotoxic medications including Amiodarone. Current Visit: Yes (3) Diabetes Status: Chronic Assessment and plan: Adequately controlled on current regimen. Current Visit: Yes Qualifiers: Diabetes mellitus type: type 2 (4) Diverticulosis Status: Chronic Assessment and plan: Continue his current medication treatment. Current Visit: No (5) Hypertension Status: Chronic Assessment and plan: Adequately controlled on Atenolol. Will adjust medications accordingly during hospital stay. Hypotension has resolved. Current Visit: No Qualifiers: Hypertension type: essential hypertension Qualified Code(s): I10 - Essential (primary) hypertension (6) Pacemaker Status: Chronic Assessment and plan: Continue current plan of care Current Visit: Yes (7) Paroxysmal atrial fibrillation Status: Chronic Assessment and plan: Unfortunately, patient is not a candidate for anticoagulation for stroke prevention. Also, amiodarone has been discontinued given the elevation of LFTs , cirrhosis of liver. Fortunately, he is currently rate controlled and upon auscultation sounds as if he is in regular sinus rhythm. Current Visit: No Cardiology - PN: Subj Interval history: ENTERTAINMENT MANAGER: DR. RIVERA SUMMARY: Mr. Leung is a 71-year-old male with a history of paroxysmal atrial fibrillation, hypertension, diabetes, GI bleed, nephrectomy, and pacemaker. He had been seen at [facility] for evaluation of abdominal pain and ascites. He was transferred here [address] from outside facility that suggested cirrhosis with ascites. On July 29 he underwent paracentesis with 4800 cc of fluid removed. Cardiology was consulted regarding discontinuing his Amiodarone. 2016: Mr. Leung is resting in bed this morning. He denies any chest pain or shortness of breath. He does continue to have abdominal discomfort and ascites. Amiodarone was discontinued yesterday. I came by to see the patient earlier in the patient had gone for large volume paracentesis at approximately 5 L removed today I saw again this afternoon with Dory Nabil. The patient no real complaints but he is abdomen remains tender. The patient has what appears to be an overall poor prognosis with this degree of cirrhosis I had a long discussion with the patient and his sister at the bedside today. All offensive medicines have been discontinued. His creatinine is gotten worse and we are holding the valsartan hydrochlorothiazide and Aldactone. 2016: Mr. Leung had paracentesis with 5000 cc of fluid removed yesterday, he is feeling more comfortable today. Poor appetite. Currently receiving IV albumin. Diuretics, Valsartan being held until renal function normalizes. Amiodarone has been discontinued. Renal function minimally improved overnight (creatinine 2.1). Denies chest pain, heaviness or tightness. Vital signs been stable throughout the night. I will further discuss with Dr. Rivera and await additional recommendations. 2016: Continues to improve slowly. Abdomen still "aching" but better. Creatinine has continued to improve and is noted to be 1.8 today. Hypotension has resolved. Continue with Atenolol. From a cardiology standpoint , he is stable for discharge when attending is ready. I will further discuss with Dr. Rivera and await additional recommendations. Exam (Progress Note) - Constitutional Vitals: Period Temp Pulse Resp BP Sys/Leavitt Pulse Ox Last 24 Hr 97.3 F-98.9 F 60-62 16-20 117-134/52-66 93-97 Exam: General appearance: Cachectic, chronically ill-appearing. Pleasant and cooperative. - Head Head exam: Absent: abrasion, hematoma - Eye Eye exam: Present: EOMI. Absent: periorbital swelling, laceration to eyelids Pupils: Present: ESME, normal accommodation - ENT ENT exam: Present: normal external ear exam, normal oropharynx - Neck Neck exam: Absent: lymphadenopathy, tenderness, thyromegaly - Respiratory Respiratory exam: Present: clear to auscultation bilaterally. Absent: accessory muscle use, chest wall tenderness - Cardiovascular Cardiovascular exam: Present: regular rate and rhythm. Absent: carotid bruit, JVD - GI/Abdominal GI/Abdominal exam: Present: ascites (This is better post paracentesis), distended, tenderness - Extremities Exam Extremities exam: Present: normal capillary refill. Absent: calf tenderness, edema - Back Exam Back exam: Absent: CVA tenderness (L), CVA tenderness (R), muscle spasm - Neurological Exam Neurological exam: Present: alert, oriented X3 - Psychiatric Psychiatric exam: Present: normal affect, normal mood - Skin Skin exam: Present: warm, dry, other (He looks sallow and chronically ill) Result/EKG - Labs CBC & BMP: 08/04/17 06:00 08/04/17 06:00 Lab Results: I have reviewed the past 24 hour labs Labs: Laboratory Results - last 24 hr 07/29/17 08/03/17 08/03/17 Unknown 11:22 16:59 WBC RBC Hgb Hct MCV MCH MCHC RDW Plt Count MPV Neut % (Auto) Lymph % (Auto) Saunders % (Auto) Eos % (Auto) Baso % (Auto) Neut # (Auto) Lymph # (Auto) Saunders # (Auto) Eos # (Auto) Baso # (Auto) Immature Gran % Nucleated RBC % Immature Gran # Nucleated RBCs # Immature Plt Fraction Sodium Potassium Chloride Carbon Dioxide Anion Gap BUN Creatinine GFR Calculation BUN/Creatinine Ratio Glucose POC Glucose 189 H 127 H Calculated Osmolality Calcium Anti-Smooth Muscle Ab Negative 08/04/17 08/04/17 08/04/17 00:17 05:36 06:00 WBC 8.3 RBC 3.05 L Hgb 10.7 L Hct 30.6 L MCV 100.3 MCH 35 H MCHC 35.0 RDW 18.0 H Plt Count 147 D MPV 11.2 Neut % (Auto) 76.6 H Lymph % (Auto) 12.2 L Saunders % (Auto) 8.5 Eos % (Auto) 1.9 Baso % (Auto) 0.2 Neut # (Auto) 6.3 Lymph # (Auto) 1.0 L Saunders # (Auto) 0.7 Eos # (Auto) 0.2 Baso # (Auto) 0.0 Immature Gran % 0.6 Nucleated RBC % 0.0 Immature Gran # 0.05 Nucleated RBCs # 0.00 Immature Plt Fraction 0.0 Sodium Potassium Chloride Carbon Dioxide Anion Gap BUN Creatinine GFR Calculation BUN/Creatinine Ratio Glucose POC Glucose 155 H 124 H Calculated Osmolality Calcium Anti-Smooth Muscle Ab 09/21/17 06:00 WBC RBC Hgb Hct MCV MCH MCHC RDW Plt Count MPV Neut % (Auto) Lymph % (Auto) Saunders % (Auto) Eos % (Auto) Baso % (Auto) Neut # (Auto) Lymph # (Auto) Saunders # (Auto) Eos # (Auto) Baso # (Auto) Immature Gran % Nucleated RBC % Immature Gran # Nucleated RBCs # Immature Plt Fraction Sodium 140 Potassium 4.5 Chloride 111 H Carbon Dioxide 21 Anion Gap 12.5 BUN 37 H Creatinine 1.80 H GFR Calculation 38 BUN/Creatinine Ratio 20.00 Glucose 105 POC Glucose Calculated Osmolality 287.4 Calcium 7.6 L Anti-Smooth Muscle Ab - Diagnostic Findings Procedure: Ultrasound: report reviewed by me (Bladder scan) <Iram Rivera - Last Filed: 08/04/17 15:30> Assessment and Plan (1) Abnormal weight loss Status: Acute Current Visit: Yes (2) Cirrhosis of liver with ascites Status: Acute Current Visit: Yes (3) Early satiety Status: Deleted Current Visit: Yes (4) Diabetes Status: Chronic Current Visit: Yes Qualifiers: Diabetes mellitus type: type 2 (5) Diverticulosis Status: Chronic Current Visit: No (6) Hypertension Status: Chronic Current Visit: No Qualifiers: Hypertension type: essential hypertension Qualified Code(s): I10 - Essential (primary) hypertension (7) Pacemaker Status: Chronic Current Visit: Yes (8) Paroxysmal atrial fibrillation Status: Chronic Current Visit: No Exam (Progress Note) - Constitutional Vitals: Period Temp Pulse Resp BP Sys/Leavitt Pulse Ox Last 24 Hr 97.1 F-98.9 F 60-61 16-24 114-134/53-68 94-97 Result/EKG - Labs CBC & BMP: 08/04/17 06:00 08/04/17 06:00 Labs: Laboratory Results - last 24 hr 08/03/17 08/04/17 08/04/17 16:59 00:17 05:36 WBC RBC Hgb Hct MCV MCH MCHC RDW Plt Count MPV Neut % (Auto) Lymph % (Auto) Saunders % (Auto) Eos % (Auto) Baso % (Auto) Neut # (Auto) Lymph # (Auto) Saunders # (Auto) Eos # (Auto) Baso # (Auto) Immature Gran % Nucleated RBC % Immature Gran # Nucleated RBCs # Immature Plt Fraction Sodium Potassium Chloride Carbon Dioxide Anion Gap BUN Creatinine GFR Calculation BUN/Creatinine Ratio Glucose POC Glucose 127 H 155 H 124 H Calculated Osmolality Calcium 08/04/17 08/04/17 08/04/17 06:00 06:00 12:39 WBC 8.3 RBC 3.05 L Hgb 10.7 L Hct 30.6 L MCV 100.3 MCH 35 H MCHC 35.0 RDW 18.0 H Plt Count 147 D MPV 11.2 Neut % (Auto) 76.6 H Lymph % (Auto) 12.2 L Saunders % (Auto) 8.5 Eos % (Auto) 1.9 Baso % (Auto) 0.2 Neut # (Auto) 6.3 Lymph # (Auto) 1.0 L Saunders # (Auto) 0.7 Eos # (Auto) 0.2 Baso # (Auto) 0.0 Immature Gran % 0.6 Nucleated RBC % 0.0 Immature Gran # 0.05 Nucleated RBCs # 0.00 Immature Plt Fraction 0.0 Sodium 140 Potassium 4.5 Chloride 111 H Carbon Dioxide 21 Anion Gap 12.5 BUN 37 H Creatinine 1.80 H GFR Calculation 38 BUN/Creatinine Ratio 20.00 Glucose 105 POC Glucose 195 H Calculated Osmolality 287.4 Calcium 7.6 L
--- NOTE | 2017-08-04 16:38 | Hospitalist Progress Note ---
Assessment and Plan (1) Ascites Status: Acute Assessment and plan: 5 L were removed for paracentesis. He has reaccumulated a significant amount apparently. I spoke with Dr. Khan about starting Lasix and spironolactone however due to his renal status he prefers to hold off on diuretics. Plan is apparently for transfer to swing bed. Dr. ayala said that they will follow- up with them there. Current Visit: Yes (2) Paroxysmal atrial fibrillation Status: Chronic Assessment and plan: Stable, rate controlled off amiodarone which was stopped due to his liver disease. Current Visit: No (3) Cirrhosis Status: Acute Current Visit: Yes Qualifiers: Hepatic cirrhosis type: unspecified hepatic cirrhosis (4) Renal failure Status: Acute Assessment and plan: BUN and creatinine I suspect her at baseline. He is complaining of shortness of breath and has some basilar rales and mild JVD. Will stop IV saline and check a chest x-ray as well as BNP. Current Visit: Yes Qualifiers: Renal failure chronicity: acute on chronic Chronic kidney disease stage: stage 3 (moderate) (5) Shortness of breath Status: Acute Current Visit: Yes Hospitalist: Subjective Interval history: Patient still has poor appetite but his diarrhea has improved. He complains of pain in his feet and "hard to breathe." He was started on normal saline yesterday due to rise in his creatinine. LORENA inhibitor has been held as well. Exam - Constitutional Vitals: Period Temp Pulse Resp BP Sys/Leavitt Pulse Ox Last 24 Hr 97.1 F-98.9 F 60-61 16-24 114-134/53-68 94-97 - Respiratory Respiratory exam: Present: rales (Bibasilar rales a few are heard.) - Cardiovascular Cardiovascular exam: Present: JVD (Mild JVD present), regular rate and rhythm - GI/Abdominal GI/Abdominal exam: Present: normal bowel sounds, distended Results - Labs CBC & BMP: 08/04/17 06:00 08/04/17 06:00 Specialty Discharge - Follow Up or Referrals
--- NOTE | 2017-08-04 18:56 | XRay Report ---
Portable chest. Indication: Shortness of breath. Comparison: December 24, 2016. The heart is normal in size. Moderate platelike atelectasis is seen at the lung bases. Cardiac hardware is in satisfactory position. Pulmonary vasculature is normal. No pneumothorax. Stable osseous structures. Impression: Moderate basilar platelike atelectasis. PROCEDURE INTERPRETED AT [facility] DEPARTMENT OF RADIOLOGY Final Report Signed by: Dr. Dafne Zafar
[2017-08-05] MEDS: INSULIN LISPRO 100 UNIT/ML SUBCUT SCH ×3 (00:33→13:40)
[2017-08-05] MEDS ORDERED: guaiFENesin 200 MG/10 ML UDCUP PO PRN (01:17)
[2017-08-05] MEDS: ALBUMIN 25% 12.5 GM in PREMIX 1 EACH IV SCH ×2 (05:58→15:48)
[2017-08-05 06:55] LABS: Basophils % 0.1 % (0.0-0.8); Eosinophils # 0.2 10*3/uL (0.0-0.87); Eosinophils % 1.7 % (0.00-10.9); Hematocrit 32.2 VOL% (42.0-52.0); Hemoglobin 11.1 GM/DL (14.0-18.0); Immature Granulocytes % 0.9 %; Immature Granulocytes Absolute 0.08 #; Lymphocytes % 10.8 % (21.2-54.2); Mean Corpuscular HGB Conc 34.5 GM/DL (32-36); Mean Corpuscular Hemoglobin 35 PG (27-34); Mean Corpuscular Volume 101.9 FL (87-102); Monocytes # 0.7 10*3/uL (0.11-0.8); Monocytes % 7.5 % (1.7-12.7); Neutrophils # 7.1 10*3/uL (1.4-7.4); Platelet Count 161 T/CUMM (130-400); Red Blood Count 3.16 MC/CUMM (3.8-5.5); Red Cell Distribution Width 18.5 % (9.3-17.3)
[2017-08-05 07:25] LABS: Albumin 3.1 G/DL (3.4-5.0); Bilirubin,Total 2.8 MG/DL (0.2-1.0); Calcium 8.1 MG/DL (8.5-10.1); Magnesium 2.2 MG/DL (1.8-2.4); Osmolality,Calculated 290.3 MOS/KG (273-304); Total Protein 5.4 G/DL (6.4-8.3)
--- NOTE | 2017-08-05 09:18 | Gastrointestinal Progress Note ---
Assessment and Plan (1) Abdominal pain Status: Acute Assessment and plan: 08/05-weights unchanged, creatinine 1.7. Possible swing bed placement. Poor appetite. Further plan an addendum to followed by Dr. Khan. 08/04-weights unchanged, creatinine down to 1.8. Continued abdominal discomfort. Okay to discharge from GI standpoint with repeat CMP 1 week. Plan an addendum to followed by Dr. Khan. 08/03-paracentesis on yesterday with 5 L removed. Serology workup still pending. Weight unchanged. Repeat CMP today. Plan an addendum to followed by Dr. Khan. 08/01-continued complaints of abdominal discomfort. Serological workup is pending at this present time. Awaiting daily weight for today however at 2 kg on yesterday. Creatinine up to 2.2. Continue to monitor this time. Plan an addendum to followed by Dr. Khan. 07/29-5 day history of abdominal pain with increased shortness of breath. Findings on CT of abdomen and outside facility of nodular liver as well as ascites. No prior history of cirrhosis or prior alcohol use. Stool studies are negative at present time. Negative for occult blood as well. Obtain hepatitis panel. Consult IR for paracentesis today. Plan an addendum to followed by Dr. Khan. Current Visit: Yes Gastroenterology - PN: Subj Interval history: CC: Abdominal pain Patient is seen awake and alert lying in bed. States he did not rest well last night due to abdominal discomfort. His creatinine is down to 1.7. His weight is unchanged as well this time. He states he has no appetite due to when he eats he does have early satiety. Abdomen is soft, nontender. He is negative for possible swing bed placement however this is still pending. ROS: Denies shortness of breath or chest pain Exam (Progress Note) - Constitutional Vitals: Period Temp Pulse Resp BP Sys/[place] Pulse Ox Last 24 Hr 96.5 F-98.7 F 59-61 18-24 114-135/49-93 93-96 - Other Additional findings: - Head Head exam: Present: normal inspection, normocephalic - Eye Eye exam: Present: other (Lids and conjunctiva unremarkable). Absent: scleral icterus - ENT ENT exam: Present: normal exam, normal oropharynx - Neck Neck exam: Present: normal inspection - Respiratory Respiratory exam: Present: clear to auscultation bilaterally. Absent: rales, rhonchi, wheezes - Cardiovascular Cardiovascular exam: Present: regular rate and rhythm. Absent: diastolic murmur , JVD, systolic murmur - GI/Abdominal GI/Abdominal exam: Present: normal bowel sounds, ascites, distended, soft. Absent: mass, organomegaly, tenderness - Extremities Exam Extremities exam: Present: normal inspection, full ROM - Back Exam Back exam: Present: normal inspection - Neurological Exam Neurological exam: Present: alert, oriented X3 - Psychiatric Psychiatric exam: Present: normal affect, normal mood - Skin Skin exam: Present: normal color, warm, dry Results - Labs CBC & BMP: 08/05/17 05:57 08/05/17 05:57 Lab Results: I have reviewed the past 24 hour labs Specialty Discharge - Follow Up or Referrals
[2017-08-05] MEDS: ZINC OXIDE PASTE 113 GM TUBE TOP SCH (09:22)
[2017-08-05] MEDS: PANTOPRAZOLE 40 MG TABLET PO SCH (09:22)
[2017-08-05] MEDS: ATENOLOL 25 MG TABLET PO SCH (09:22)
--- NOTE | 2017-08-05 09:43 | Event Note ---
I d/w patient. Nothing to add.
--- NOTE | 2017-08-05 09:58 | Discharge Summary ---
Hospital Course - Hospital Course Hospital Course: 71-year-old with history of paroxysmal atrial fibrillation, hypertension, diabetes, previous GI bleed, status post nephrectomy, he has a pacemaker. He was admitted for abdominal distention, pain and ascites. 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 Fluid was negative for cells to suggest SBP. He was started on diuretics to help with reduction of the ascites but because of his renal function diuretics will be discontinued. Gastroenterology swallow has been on board and plan to follow him up at rehab upon discharge On the day of discharge, he was hemodynamically stable though still with significant abdominal distention ascites. - Time spent with patient Time with patient DS: Greater than 30 minutes Specialty Discharge - Follow Up or Referrals Discharge Plan - Discharge Data Disposition: Swing Bed, Hos Based, [facility] Condition at Discharge: Guarded Discharge Diet: advance to your usual diet Activity: increase activity as tolerated - Discharge Medications New Insulin Lispro [HumaLOG] See Protocol SUBCUT Q6HR unit Pantoprazole Tab [Protonix Tab] 40 mg PO DAILY tablet Zinc Oxide Paste [Desitin Paste] 1 applic TOP BID applic Discontinued Metformin HCl 1,000 mg PO BID W/MEALS glipiZIDE [Glipizide] 5 mg PO BIDAC Atenolol [Tenormin] 25 mg PO BID Hyoscyamine Sulfate 0.125 mg PO Q4H PRN PRN Reason: Dry Mouth Valsartan/Hydrochlorothiazide [Valsartan-Hctz 320-25 mg Tab] 1 each PO DAILY Amiodarone HCl 100 mg PO BID Potassium Chloride Cap/Tab [K Dur] 1 tablet PO DAILY Pravastatin [Pravachol] 40 mg PO BEDTIME Sulfameth/Trimeth 800-160 Tab [Bactrim DS Tab] 1 tablet PO BID - Follow Up or Referral - Forms/Instructions Instructions: Cirrhosis (DC), Acute Diarrhea (GEN), Acute Abdominal Pain (DC) Additional Discharge Instructions: Gastroenterology follow-up as scheduled at rehab facility. Cardiology follow-up Exam - Constitutional Vitals: Period Temp Pulse Resp BP Sys/[place] Pulse Ox Last 24 Hr 96.5 F-98.7 F 59-61 18-24 114-135/49-93 93-96 Discharge Results Procedures and tests throughout hospitalization: Pending Orders 09/15/17 03:20 Occult Blood, Stool Routine 07/29/17 11:31 Cytology Request Stat 07/30/17 06:19 Hemochromatosis HFE Gene Adelina IN AM 08/06/17 04:00 CBC [Comp Blood Count Auto Diff] IN AM 08/07/17 04:00 CBC [Comp Blood Count Auto Diff] IN AM Labs on day of discharge: Labs from last 24 hours 08/05/17 08/05/17 08/05/17 05:57 05:57 05:23 WBC 9.0 RBC 3.16 L Hgb 11.1 L Hct 32.2 L MCV 101.9 MCH 35 H MCHC 34.5 RDW 18.5 H Plt Count 161 MPV 11.0 Neut % (Auto) 79.0 H Lymph % (Auto) 10.8 L [place] % (Auto) 7.5 Eos % (Auto) 1.7 Baso % (Auto) 0.1 Neut # (Auto) 7.1 Lymph # (Auto) 1.0 L [place] # (Auto) 0.7 Eos # (Auto) 0.2 Baso # (Auto) 0.0 Immature Gran % 0.9 Nucleated RBC % 0.0 Immature Gran # 0.08 Nucleated RBCs # 0.00 Immature Plt Fraction 0.0 Sodium 141 Potassium 5.0 Chloride 110 H Carbon Dioxide 24 Anion Gap 12.0 BUN 34 H Creatinine 1.70 H GFR Calculation 40 BUN/Creatinine Ratio 20.00 Glucose 135 H POC Glucose 152 H Calculated Osmolality 290.3 Calcium 8.1 L Magnesium 2.2 Total Bilirubin 2.80 H AST 96 H ALT 60 Alkaline Phosphatase 170 H B-Natriuretic Peptide Total Protein 5.4 L Albumin 3.1 L Globulin 2.3 Albumin/Globulin Ratio 1.3 08/05/17 08/04/17 08/04/17 00:30 17:26 17:26 WBC RBC Hgb Hct MCV MCH MCHC RDW Plt Count MPV Neut % (Auto) Lymph % (Auto) [place] % (Auto) Eos % (Auto) Baso % (Auto) Neut # (Auto) Lymph # (Auto) [place] # (Auto) Eos # (Auto) Baso # (Auto) Immature Gran % Nucleated RBC % Immature Gran # Nucleated RBCs # Immature Plt Fraction Sodium Potassium Chloride Carbon Dioxide Anion Gap BUN Creatinine GFR Calculation BUN/Creatinine Ratio Glucose POC Glucose 187 H 132 H Calculated Osmolality Calcium Magnesium Total Bilirubin AST ALT Alkaline Phosphatase B-Natriuretic Peptide 532 H Total Protein Albumin Globulin Albumin/Globulin Ratio 08/04/17 12:39 WBC RBC Hgb Hct MCV MCH MCHC RDW Plt Count MPV Neut % (Auto) Lymph % (Auto) [place] % (Auto) Eos % (Auto) Baso % (Auto) Neut # (Auto) Lymph # (Auto) [place] # (Auto) Eos # (Auto) Baso # (Auto) Immature Gran % Nucleated RBC % Immature Gran # Nucleated RBCs # Immature Plt Fraction Sodium Potassium Chloride Carbon Dioxide Anion Gap BUN Creatinine GFR Calculation BUN/Creatinine Ratio Glucose POC Glucose 195 H Calculated Osmolality Calcium Magnesium Total Bilirubin AST ALT Alkaline Phosphatase B-Natriuretic Peptide Total Protein Albumin Globulin Albumin/Globulin Ratio DS: Provider Date of admission: 07/28/17 16:39 Primary care physician: . No PCP Attending physician on admission: Tj Sutton MD Consults: 07/28/17 16:39 Consult to Physician [CONS] Routine Comment: Consulting Provider: Ubaldo Khan Consult to Specialist Group: Gastroenterology Person Notified: Roxy Lynn Date Notified: 07/29/17 Time Notified: 08:34 08/01/17 10:07 Consult to Physician [CONS] Routine Comment: Dr Rush is pt's doctor Consulting Provider: Isaac Lott Consult to Specialist Group: Cardiology Person Notified: Toni Date Notified: 08/01/17 Time Notified: 10:10 08/04/17 07:07 Consult to Physical Therapy [CONS] Routine Reason for Physical Therapy: Evaluate and Treat Start Therapy: Today 08/04/17 11:04 Consult to Case Mgmt/Social Srvs [CONS] Routine Reason for Case Mgmt/Social Srvs: LTAC Discharging clinician: Justus Reveles MD
[2017-08-05 15:20] VITALS: BP 128/61
== END 2017-08-05 17:30 | disposition swing bed (61) | DRG 433 ==
LOC: SUATTDRO 16:39 → N.5E 17:32
PROVIDERS: ADMIT Internal Medicine; ATTEND Internal Medicine